=== PATIENT | female | born 1940 | race Caucasian/White ===

== ENCOUNTER 2017-03-14 06:59 | Day surgery (SDC) | payer MEDICARE ==
--- NOTE | 2017-03-07 10:05 | HP ---
DATE OF ADMISSION: 03/07/2017 SHORT STAY HISTORY AND PHYSICAL HISTORY OF PRESENT ILLNESS: This is a 77-year-old female with anal cancer, status post ch emoradiation. The patient had completed chemotherapy and radiation therapy. The patient is doing w ell except for some perianal discomfort and some tenderness. The patient has being seeing Dr. Greta Mays for chemotherapy. Dr. Mays requested sigmoidoscopy because of the anal cancer. ALLERGIES: PENICILLIN. MEDICAL ILLNESS: 1. Anal cancer, status post chemoradiation. 2. Osteoarthritis. 3. Colon polyp. 4. Glaucoma. 5. Migraine. 6. Osteoporosis. PHYSICAL EXAMINATION: GENERAL: Patient is thin built, appears comfortable. VITAL SIGNS: Pulse is 70, blood pressure is 130/70. HEENT: Conjunctivae are clear. CARDIOVASCULAR SYSTEM: First and second heart sounds are normal. LUNGS: Clear to auscultation. ABDOMEN: Soft to palpate. No organomegaly. No tenderness. No masses. ADMITTING DIAGNOSIS: Anal cancer. She is status post chemoradiation. PLAN: Sigmoidoscopy.
[2017-03-13 08:27] VITALS: BMI 18.9
--- NOTE | 2017-03-14 06:07 | HP ---
DATE OF ADMISSION: 03/14/2017 HISTORY OF PRESENT ILLNESS: This is a 77-year-old female diagnosed to have the anal canal cancer few months ago. She had undergone chemoradiation. The patient has completed chemotherapy r ecently. She comes in for a sigmoidoscopy today because of the previously diagnosed anal cancer. ALLERGIES: PENICILLIN. MEDICAL ILLNESSES: 1. Osteoarthritis. 2. Colon polyp. 3. Glaucoma. 4. Migraine headache. 5. Osteoporosis. 6. Anal cancer. PHYSICAL EXAMINATION: GENERAL: She is thin built, appears comfortable. VITAL SIGNS: Pulse is 70, blood pressure 120/70. HEENT: Conjunctivae clear. CARDIOVASCULAR SYSTEM: First and second heart sounds normal. LUNGS: Clear to auscultation. ABDOMEN: Soft to palpate. No organomegaly. No tenderness. No masses. ADMITTING DIAGNOSIS: Anal cancer, status post chemoradiation. PLAN: Sigmoidoscopy.
[2017-03-14] MEDS ORDERED: Lidocaine 1% PF 5 ML VIAL ONE (08:52)
[2017-03-14] MEDS ORDERED: PHENYLEPHRINE-NS 100 MCG/ML 10 ML SYRINGE ONE (08:52)
--- NOTE | 2017-03-14 10:15 | OP ---
DATE OF PROCEDURE: 03/14/2017 SURGEON: Soifa Blandon M.D. OPERATIVE PROCEDURE: Flexible sigmoidoscopy with biopsy. PREOPERATIVE DIAGNOSIS: Anal canal cancer, status post chemoradiation. POSTOPERATIVE DIAGNOSES: 1. Hemorrhoids. 2. No anal canal mass seen. Random biopsies were obtained from the anal canal. The exam was done to about 30 cm from the anal margin. PROCEDURE IN DETAIL: The patient was placed on her left lateral position and was given sedation by Anesthesia Department. A rectal exam was done before the scope was advanced into the rectum. The p atient had an hemorrhoids, a skin tag outside. No lesions were felt on rectal exam. A Pentax video colonoscope was introduced into the rectum and advanced to a distance of about 30 cm from the anal margin. The scope was withdrawn carefully and rectum with no pathology. There were no masses the r ectum. Retroflexion failed to show any lesions in the rectum also. The scope was carefully withdra wn. In the anal canal there is an area of what appears to be mucosal healing and some irregular muc kuldeep. This was biopsied. 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 She underwent chemoradiation. The sigmoidoscopy did not reveal any pathology. DISCHARGE RECOMMENDATIONS: 1. The patient advised to call me if she develops abdominal pain, hematochezia or fever. 2. She was told she may have some bleeding from the biopsy site.
== END 2017-03-14 09:44 | disposition home or self-care (01) ==
LOC: SDC 06:59
PROVIDERS: ATTEND Internal Medicine Gastroenterology
PROC: 0DBQ8ZX Excision of Anus, Via Natural or Artificial Opening Endoscopic, Diagnostic (ICD-10-PCS; principal; 2017-03-14)
PROC: 0DBP8ZX Excision of Rectum, Via Natural or Artificial Opening Endoscopic, Diagnostic (ICD-10-PCS; 2017-03-14)
DX: Z08 Encounter for follow-up examination after completed treatment for malignant neoplasm (principal); K64.9 Unspecified hemorrhoids; M19.90 Unspecified osteoarthritis, unspecified site; H40.9 Unspecified glaucoma; G43.909 Migraine, unspecified, not intractable, without status migrainosus; M81.0 Age-related osteoporosis without current pathological fracture; Z88.0 Allergy status to penicillin; Z79.899 Other long term (current) drug therapy; Z98.42 Cataract extraction status, left eye; Z98.41 Cataract extraction status, right eye; Z90.49 Acquired absence of other specified parts of digestive tract; Z96.1 Presence of intraocular lens; Z98.890 Other specified postprocedural states; Z87.19 Personal history of other diseases of the digestive system; Z92.3 Personal history of irradiation; Z92.21 Personal history of antineoplastic chemotherapy
CPT/HCPCS: 88305; J2001

== ENCOUNTER 2017-05-09 06:55 | Outpatient (CLI) | payer MEDICARE | END 2017-05-09 06:56 | disposition home or self-care (01) | LOC: BICMRI 06:55 | PROVIDERS: ATTEND Orthopaedic Surgery Hand Surgery | DX: S63.592A Other specified sprain of left wrist, initial encounter (principal); S52.502A Unspecified fracture of the lower end of left radius, initial encounter for closed fracture; S62.132A Displaced fracture of capitate [os magnum] bone, left wrist, initial encounter for closed fracture ==

== ENCOUNTER 2017-12-12 10:14 | Outpatient (CLI) | payer MEDICARE ==
--- NOTE | 2017-12-12 12:25 | RAD ---
CHEST 2 VIEWS: Date: 12/12/17 HISTORY: Dyspnea. COMPARISON: PET CT from 01/24/17. FINDINGS: Cardiac silhouette and pulmonary vasculature are unremarkable. Lungs are hyperinflated. Mediastinum i s midline. Patchy opacity over the lateral aspect of the right upper lobe correlates with the nodular infiltrate on prior CT. No lobar consolidation, pneumothorax, or pleural fluid are apparent. IMPRESSION: 1. Chronic versus recurrent right upper lobe multinodular infiltrate. Similar to CT exam from . 2. COPD. POS: [facility]
== END 2017-12-12 10:15 | disposition home or self-care (01) ==
LOC: RAD 10:14
PROVIDERS: ATTEND Internal Medicine Pulmonary Disease
DX: R06.00 Dyspnea, unspecified (principal); J44.9 Chronic obstructive pulmonary disease, unspecified
CPT/HCPCS: 71046

== ENCOUNTER 2018-04-02 11:03 | Outpatient (CLI) | payer MEDICARE | END 2018-04-02 11:04 | disposition home or self-care (01) | LOC: BICMAMMO 11:03 | PROVIDERS: ATTEND Internal Medicine | DX: Z12.31 Encounter for screening mammogram for malignant neoplasm of breast (principal) | CPT/HCPCS: 77063; 77067 ==

== ENCOUNTER 2018-04-06 08:49 | Outpatient (CLI) | payer MEDICARE ==
--- NOTE | 2018-04-06 10:23 | RAD ---
RADIOGRAPH CHEST 2 VIEWS: Date: 04/06/2018 Time: 8:58 a.m. HISTORY: A 78-year-old female with dyspnea. COMPARISON: 03/16/2017 FINDINGS: The cardiomediastinal silhouette is normal. There is no hilar enlargement. No pleural effusion or p neumothorax. A cluster of reticulonodular densities at the lateral aspect of the right upper lobe is unchanged since 03/16/2017. It was also present on an older study of 09/27/2013. A small, focal, irregularly-shaped density at the lingula, and possibly a similar one in the right mi ddle lobe, at the medial anterior right lung base, are unchanged since 11/15/2016. No new consolidat ion is visualized. No pulmonary edema, pleural effusion, or pneumothorax. IMPRESSION: 1. No acute findings. 2. Cluster of reticulonodular densities in the right upper lobe is chronic. JN [] POS: [facility]
== END 2018-04-06 08:50 | disposition home or self-care (01) ==
LOC: BICRAD 08:49
PROVIDERS: ATTEND Internal Medicine Pulmonary Disease
DX: R06.00 Dyspnea, unspecified (principal); J98.4 Other disorders of lung
CPT/HCPCS: 71046

== ENCOUNTER 2018-06-19 14:18 | Outpatient (CLI) | payer MEDICARE ==
--- NOTE | 2018-06-19 16:38 | RAD ---
RIGHT HIP RADIOGRAPH TWO VIEWS: 06/19/18 PROVIDED CLINICAL HISTORY: Hip pain. FINDINGS: There is no evidence for fracture or other acute osseous abnormality. Alignment appears anatomic. Rig ht hip joint space appears preserved. IMPRESSION: No evidence for an acute osseous abnormality or significant arthropathy. POS: [facility]
--- NOTE | 2018-06-19 16:40 | RAD ---
LUMBAR SPINE TWO VIEWS: 06/19/18 HISTORY: Low back pain. Intervertebral disc degeneration, lumbar region. FINDINGS/IMPRESSION: Degenerative changes are seen with dextroscoliosis of the lumbar spine. No acute fracture is seen. Th ere is grade I-II anterolisthesis of L5 over S1. POS: [facility]
--- NOTE | 2018-06-19 16:40 | RAD ---
LEFT HIP RADIOGRAPHS TWO VIEWS: 06/19/18 PROVIDED CLINICAL HISTORY: Hip pain. FINDINGS: No evidence for fracture or other acute osseous abnormality. Alignment appears anatomic. Left hip avinash nt space appears preserved. IMPRESSION: No evidence for acute osseous abnormality or significant arthropathy. POS: [facility]
--- NOTE | 2018-06-19 16:41 | RAD ---
SACROILIAC JOINTS THREE VIEWS: 06/19/18 HISTORY: Low back pain. FINDINGS/IMPRESSION: There are mild degenerative changes in the sacroiliac joints. No fracture, dislocation or bony destru ction seen in the pelvic bones. POS: [facility]
== END 2018-06-19 14:19 | disposition home or self-care (01) ==
LOC: BICRAD 14:18
PROVIDERS: ATTEND Internal Medicine
DX: M54.5 Low back pain (principal); M53.3 Sacrococcygeal disorders, not elsewhere classified; M47.898 Other spondylosis, sacral and sacrococcygeal region; M47.816 Spondylosis without myelopathy or radiculopathy, lumbar region; M41.9 Scoliosis, unspecified; M43.17 Spondylolisthesis, lumbosacral region
CPT/HCPCS: 72100; 72202

== ENCOUNTER 2018-07-06 09:03 | Outpatient (CLI) | payer MEDICARE ==
[2018-07-06] MEDS ORDERED: Gadobenate Dimeglumine 529 MG/1 ML (20ML VIAL) ONE (09:51)
--- NOTE | 2018-07-06 11:26 | MRI ---
MRI LUMBAR SPINE WITH AND WITHOUT CONTRAST: Date: 07/06/18 HISTORY: Lumbar spine pain. History of rectal cancer and anal cancer. Pain in coccyx. Evaluation for metastati c disease. COMPARISON: 06/19/18. FINDINGS: Aortic contour is nonaneurysmal. Paraspinal musculature is mildly atrophic. Mild prominence of the extrahepatic biliary system. There are insufficiency fractures of the sacrum bilaterally involving zone 1 of S1 and S2 and S3, inc ompletely evaluated as the entirety of the sacrum was not evaluated. There is also a transversely uzma ented fracture of the sacrum and S2 and S3. The conus medullaris terminates near the superior end plate of L1. Levels are as follows: L1-2: Moderate facet degenerative disc space height loss. 2 mm retrolisthesis. Broad based posterior disc osteophyte complex. There is moderate facet arthropathy. There is moderate bilateral neural for aminal narrowing. No spinal canal narrowing. L2-3: Mild disc desiccation. Narrowing of the interspinous space and subcortical sclerosis. Mild fac et arthrosis. Low grade posterior disc osteophyte complex. There is mild bilateral neural foraminal n arrowing. L4-5: There is a broad based posterior disc protrusion. Moderate facet arthrosis. Moderate to severe bilateral neural foraminal narrowing with abutment of the exiting nerve roots bilaterally. Spinal ca nal not significantly narrowed. L4-5: There is a broad based posterior disc osteophyte complex. Moderate facet arthrosis. Moderate l eft and moderate to severe right-sided neural foraminal narrowing with abutment of the right exiting nerve root. Severe facet arthropathy. Narrowing of the intraspinous spaces. L5-S1: There is anterolisthesis of L5 over S1 approximately 12 mm. Stress edema of the pars interart icularis bilaterally. There is subsequent moderate to severe left and severe right-sided neural charlotte inal narrowing. IMPRESSION: 1. Insufficiency fracture of the sacrum involving zone 1 and zone of 2 of S1-S3, as well as a transv ersely oriented fracture of the sacrum and S2 and S3. 2. 12 mm L5 over S1 anterolisthesis with subsequent severe neural foraminal narrowing. 3. Multifocal moderate to severe spondylosis as described. 4. No definite evidence of osseous metastatic disease. 5. Circumferential wall thickening of the rectum may be post treatment in nature. POS: [facility]
== END 2018-07-06 09:04 | disposition home or self-care (01) ==
LOC: MRI 09:03
PROVIDERS: ATTEND Internal Medicine
DX: M53.3 Sacrococcygeal disorders, not elsewhere classified (principal); M84.48XA Pathological fracture, other site, initial encounter for fracture; M43.17 Spondylolisthesis, lumbosacral region; M47.816 Spondylosis without myelopathy or radiculopathy, lumbar region; K62.89 Other specified diseases of anus and rectum; Z85.048 Personal history of other malignant neoplasm of rectum, rectosigmoid junction, and anus
CPT/HCPCS: 72158; 82565; A9577

== ENCOUNTER 2018-07-17 09:24 | Outpatient (CLI) | payer MEDICARE ==
--- NOTE | 2018-07-17 10:55 | RAD ---
3 VIEWS LUMBOSACRAL SPINE: Date: 07/17/18 COMPARISON: 06/09/18. HISTORY: Spondylolisthesis. FINDINGS: Three views of the lumbosacral spine were performed in neutral, flexion, and extension. There is Grade I anterolisthesis of L5 on S1. The other vertebral bodies demonstrate normal height wi thout fracture or subluxation. Alignment is unchanged with flexion and extension. Posterior facet art hrosis is seen in the lower lumbosacral spine. IMPRESSION: Spondylolisthesis of L5 on S1 with unchanged alignment with bending. POS: [facility]
== END 2018-07-17 09:25 | disposition home or self-care (01) ==
LOC: RAD 09:24
PROVIDERS: ATTEND Nurse Practitioner Family
DX: M43.16 Spondylolisthesis, lumbar region (principal); M43.17 Spondylolisthesis, lumbosacral region
CPT/HCPCS: 72100

== ENCOUNTER 2018-07-24 14:00 | Outpatient (CLI) | payer MEDICARE ==
--- NOTE | 2018-07-24 15:42 | CT ---
CT PELVIS NONCONTRAST: HISTORY: Back pain. Sacral insufficiency fractures. FINDINGS: Osseous structures are demineralized. Sagittally oriented linear lucency extends through the upper p ortions of each side of the sacrum with minimal distraction and no significant displacement. A small amount of surrounding sclerosis. Pelvic rings are intact. Mild degenerative changes of the hips. Spondylolisthesis at the lumbosacra l junction is partially visualized and better detailed on dedicated CT lumbar spine performed on the same date. Of visualized portions of the soft tissues, a 0.9 cm calculus is present within the infer ior pole right kidney. There are at least 3 tiny calcifications at the inferior pole of the left kid bennett. Circumferential wall thickening of the rectum and stranding in the adjacent fat are likely rela jassi to prior treatment for cancer. IMPRESSION: 1. Nondisplaced bilateral sacral insufficiency fractures are confirmed. 2. Osteoporosis. 3. Nonobstructing bilateral renal calculi. POS: [facility]
--- NOTE | 2018-07-24 15:49 | CT ---
CT LUMBAR SPINE NONCONTRAST: History: Low back pain. FINDINGS: Vertebral body heights are maintained. There is prominent rightward convex rotatory scoliotic curvatu re. Osseous structures are demineralized. Images including retroperitoneum show nonobstructing calcifications at the inferior pole of each kidn ey. T12-L1: Osteophytosis. Disc space narrowing and minimal degenerative retrolisthesis. Central canal an d right neural foramen are patent. Moderate stenosis of the left neural foramen. L1-2: Disc space narrowing and minimal degenerative retrolisthesis. Central canal and right neural fo ramen are patent. Severe stenosis of the left neural foramen. L2-3: Minimal disc bulge. Central canal is patent. Degenerative changes with mild to moderate stenosi s of each neural foramen. L3-4: Mild disc bulge and circumferential degenerative changes. Mild stenosis of the central canal. M oderate right and mild left foraminal stenoses. L4-5: Posterior disc bulge. Slight effacement of the thecal sac without significant central canal lexy nosis. Degenerative changes with mild stenosis of each neural foramen. L5-S1: There is 49% spondylolisthesis, disc space narrowing and gas disc phenomenon. Moderate stenosi s of the thecal sac due to the spondylolisthesis. Moderate right and very severe left foraminal steno ses. Bilateral sacral insufficiency fractures are partially visualized and better detailed on dedicated CT of the pelvis performed on the same date. IMPRESSION: 1. Prominent multilevel degenerative changes throughout the lumbar spine as detailed above with steno sis most severe at the left neural foramen of the lumbosacral junction. Clinical correlation regardin g the left L5 dermatome is required. 2. Osteoporosis. 3. Nonobstructing bilateral renal calculi. POS: [facility]
== END 2018-07-24 14:01 | disposition home or self-care (01) ==
LOC: BICCT 14:00
PROVIDERS: ATTEND Nurse Practitioner Family
DX: M84.48XA Pathological fracture, other site, initial encounter for fracture (principal); M43.16 Spondylolisthesis, lumbar region; M48.061 Spinal stenosis, lumbar region without neurogenic claudication; M47.815 Spondylosis without myelopathy or radiculopathy, thoracolumbar region; M47.816 Spondylosis without myelopathy or radiculopathy, lumbar region; M18.0 Bilateral primary osteoarthritis of first carpometacarpal joints; N20.0 Calculus of kidney
CPT/HCPCS: 72131; 72192

== ENCOUNTER 2019-02-08 08:18 | Day surgery (SDC) | payer MEDICARE ==
[2019-02-07 11:51] VITALS: BMI 18.8
--- NOTE | 2019-02-07 14:58 | HP ---
HISTORY OF PRESENT ILLNESS: Mireya Silva is a very pleasant 78-year-old female with anal cancer, status post chemoradiation. The patient did well since diagnosis. Her last sigmoidoscopy was about a year ago. The patient comes for followup colonoscopy because of anal cancer and also history of colon polyp. She is also having abdominal pain off and on. Pain is present over the epigastric area. She has no nausea or vomiting. She also will have an EGD at the same time because of abdominal pain. ALLERGIES: PENICILLIN. SOCIAL HISTORY: The patient is a former smoker. Drinks alcohol socially. MEDICAL ILLNESSES: 1. Hypothyroidism. 2. Migraine. 3. Osteoarthritis. 4. Anal cancer, status post chemoradiation. 5. She had a bronchoscopy and biopsy of pulmonary infiltrate in [address] Dean and biopsy was negative for any malignancy. PHYSICAL EXAMINATION: GENERAL: She is thin built individual. VITAL SIGNS: Pulse is 70, blood pressure 120/70. HEENT: Conjunctivae are clear. CARDIOVASCULAR SYSTEM: First and second heart sounds are normal. LUNGS: Clear to auscultation. ABDOMEN: Soft. No organomegaly. No tenderness. No masses. EXTREMITIES: Reveal no edema. ADMITTING DIAGNOSES: 1. Anal cancer, status post chemoradiation. 2. Abdominal pain. PLAN: EGD and colonoscopy. Job ID: [id number]
[2019-02-08] MEDS ORDERED: PROPOFOL 200 MG/20 ML VIAL ONE (13:52)
--- NOTE | 2019-02-08 15:07 | OP ---
DATE OF PROCEDURE: 02/08/2019 PROCEDURE PERFORMED: Colonoscopy with biopsy. PREOPERATIVE DIAGNOSIS: A 78-year-old female with colon polyp, anal cancer, status post chemoradiation. The patient undergoing followup colonoscopy. POSTOPERATIVE DIAGNOSES: 1. Anal canal appears healthy, does not show any tumor mass. However, the mucosa was very erythematous and friable. 2. Sigmoid diverticular disease. Biopsy was obtained of the anal canal. DESCRIPTION OF PROCEDURE: The patient was placed on her left lateral position and was given sedation by Anesthesia Department. A rectal exam was done. The scope was advanced into the rectum. The patient was noted to have external hemorrhoids. No other lesions felt. A Pentax video colonoscope was introduced into the rectum and advanced all the way to the cecum. The ileocecal area, cecum, ascending colon, no pathology seen. The patient's prep was good. The mucosa appears normal throughout the colon. The hepatic flexure, transverse colon, splenic flexure, descending colon, no pathology seen. The sigmoid colon showed mild diverticular disease. The rectum showed no sign of pathology. I could not retroflex the scope in the rectum, but careful examination of the anal canal showed no mass lesion. The biopsy was obtained from the anal canal. Job ID: [id number]
--- NOTE | 2019-02-08 15:12 | OP ---
DATE OF PROCEDURE: 02/08/2019 PROCEDURE PERFORMED: Esophagogastroduodenoscopy with biopsy. PREOPERATIVE DIAGNOSES: Abdominal pain. POSTOPERATIVE DIAGNOSES: 1. Normal esophageal mucosa. 2. Normal fundus and cardia and gastric body. 3. Two ulceration of the gastric antrum and gastritis. 4. Normal duodenum. DESCRIPTION OF PROCEDURE: The patient was placed on her left lateral position and was given sedation by Anesthesia Department. A Pentax video gastroscope under direct vision was passed down the oropharynx, past the GE junction into the stomach and subsequently into the descending duodenum. The esophageal mucosa appeared normal. In the GE junction, no lesion seen. Retroflexion failed to show any pathology in fundus or cardia. In the gastric body, no pathology. The gastric antrum showed two ulcerations. Biopsy obtained of the gastric antrum and gastric body. The duodenal bulb, descending duodenum, no pathology seen. DISCHARGE PLANNING: This 78-year-old female came for EGD because of abdominal pain. This has been going on several months. She has had a colon polyp removed. She also had anal cancer, chemoradiation. She underwent EGD with biopsy and colonoscopy with rectal biopsy. DISCHARGE RECOMMENDATIONS: 1. Resume all medications as before. 2. Start the patient on omeprazole 40 once a day. 3. To come back to clinic in 2 weeks. Job ID: [id number]
== END 2019-02-08 11:42 | disposition home or self-care (01) ==
LOC: SDC 08:18
PROVIDERS: ATTEND Internal Medicine Gastroenterology
PROC: 0DB68ZX Excision of Stomach, Via Natural or Artificial Opening Endoscopic, Diagnostic (ICD-10-PCS; principal; 2019-02-08)
PROC: 0DBP8ZX Excision of Rectum, Via Natural or Artificial Opening Endoscopic, Diagnostic (ICD-10-PCS; 2019-02-08)
DX: C21.0 Malignant neoplasm of anus, unspecified (principal); K57.30 Diverticulosis of large intestine without perforation or abscess without bleeding; K31.89 Other diseases of stomach and duodenum; K25.9 Gastric ulcer, unspecified as acute or chronic, without hemorrhage or perforation; K29.70 Gastritis, unspecified, without bleeding; E03.9 Hypothyroidism, unspecified; M19.90 Unspecified osteoarthritis, unspecified site; Z86.010 Personal history of colon polyps; Z87.891 Personal history of nicotine dependence; Z88.0 Allergy status to penicillin
CPT/HCPCS: 88305; 88312

== ENCOUNTER 2019-03-18 13:38 | Outpatient (CLI) | payer MEDICARE ==
--- NOTE | 2019-03-18 14:34 | CT ---
CT Pelvis WO Con History: Pelvic insufficiency fracture. Comparison: CT pelvis July 24, 2017 Findings: There has been interval cement placement within the bilateral sacral insufficiency fracture s. Mild cemented migration into the SI joints. High-grade facet arthrosis at L5/S1 with subsequent grade 2 anterolisthesis. Broad-based disc bulges at L3/L4 and L4/L5 causing bilateral neural foraminal narrowing. There is advanced interspinous narrowing with subcortical cyst formation and cortical sclerosis. There is a new fracture of the left pubic body extending into the superior and inferior pubic rami. T he rectus femoris/abductor aponeurotic plate is thickened. Nonobstructive bilateral renal calculi. Impression: 1. Interval cement placement through the bilateral sacral insufficiency fractures without significant healing. 2. New fracture of the left pubic body extending into the superior and inferior pubic rami. At the ca udal margin of the fracture at the inferior pubic ramus on the left is a medullary lucency which is felt to reflect remodeling and less likely a lytic neoplastic process.
== END 2019-03-18 13:39 | disposition home or self-care (01) ==
LOC: BICCT 13:38
PROVIDERS: ATTEND Specialist
DX: M84.48XA Pathological fracture, other site, initial encounter for fracture (principal); M84.454A Pathological fracture, pelvis, initial encounter for fracture
CPT/HCPCS: 72192

== ENCOUNTER 2019-04-08 15:54 | Outpatient (CLI) | payer MEDICARE ==
--- NOTE | 2019-04-08 16:25 | MMO ---
Bilateral MAMMO Bilat Screen [facility]. CLINICAL HISTORY: Patient is 79 years old and is seen for screening. The patient has no family history of breast cancer. The patient has a history of other cancer. VIEWS: The views performed were: bilateral craniocaudal with tomosynthesis; bilateral mediolateral oblique with tomosynthesis; and bilateral exaggerated craniocaudal. FILMS COMPARED: The present examination has been compared to prior imaging studies performed at [facility] on 04/01/2015, 03/29/2016, 03/30/2017 and 04/02/2018. This study has been interpreted with the assistance of computer-aided detection. MAMMOGRAM FINDINGS: The breasts are extremely dense, which may lower the sensitivity of mammography. There are no suspicious masses, suspicious calcifications, or new areas of architectural distortion. IMPRESSION: THERE IS NO MAMMOGRAPHIC EVIDENCE OF MALIGNANCY. A ROUTINE FOLLOW-UP MAMMOGRAM IN 1 YEAR IS RECOMMENDED. THE RESULTS OF THIS EXAM WERE SENT TO THE PATIENT. ACR BI-RADS Category 1 - Negative MAMMOGRAPHY NOTE: 1. A negative mammogram report should not delay a biopsy if a dominant of clinically suspicious mass is present. 2. Approximately 10% to 15% of breast cancers are not detected by mammography. 3. Adenosis and dense breasts may obscure an underlying neoplasm. Reported by: [employer] CAMP[facility] [employer] Signed: [id number]
== END 2019-04-08 15:55 | disposition home or self-care (01) ==
LOC: BICMAMMO 15:54
PROVIDERS: ATTEND Internal Medicine
DX: Z12.31 Encounter for screening mammogram for malignant neoplasm of breast (principal); Z85.89 Personal history of malignant neoplasm of other organs and systems
CPT/HCPCS: 77063; 77067

== ENCOUNTER 2020-05-25 07:41 | Outpatient (CLI) | payer MEDICARE ==
--- NOTE | 2020-05-25 10:04 | MRI ---
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 Extensive signal changes involving both sacral ala compatible with the previously demonstrated change s of sacral insufficiency fracture status post methylmethacrylate placement. There is signal alteration involving the medial aspects of both iliac bones adjacent to the sacroilia c joints, predominating on the right and predominating inferiorly bilaterally. This is comprised of heterogeneously diminished T1 signal alteration that remains predominantly isointense to hyperintense to skeletal muscle. There is extensive patchy, nonmass-like T2 prolongation bilaterally. There is a widened and irregular appearance to both sacroiliac joints. There is no inflammatory change within the surrounding soft tissues. There is circumscribed T2 hyperi ntensity within the central aspects of the uterine endometrial canal, incompletely characterized on the basis of this study. The visualized intrapelvic contents appear otherwise grossly unremarkable. T he amount of fluid within both hip joints appears physiologic. IMPRESSION: 1. Findings compatible with sequela of prior treated sacral insufficiency fractures. 2. 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 3. Signal alteration involving right greater than left medial iliac bones, most compatible with a com bination of stress-related changes and bone infarction. If the patient has had radiation, postradiation change could also be considered. 4. Abnormal appearance to the uterus, for which further evaluation with pelvic ultrasound is recommen ded.
--- NOTE | 2020-05-25 11:33 | MRI ---
MRI LUMBAR SPINE WITHOUT COTNRAST: HISTORY: M51.17, intervertebral disk disorder. COMPARISON: Ference is made to a CT of the pelvis of 03/18/2020. There is also a CT of the lumbar spine 07/24/2018 . FINDINGS: No marrow infiltrative process. No acute fracture. Incomplete evaluation of the sacrum. There is cement through known insufficiency fractures. Narrowing of the intraspinous space with adventitial bursa formation of L1-L5, greatest degeneration at L2-3. There are also subcortical erosions at L3-4 interspinous space. The conus medullaris terminates near the superior L1 end plate. Levels are as follows: L1-2: Moderate disk desiccation and height loss. Moderate disk effusion. There is 2 mm retrolisthe sis. Moderate disk-osteophyte complex. Minimal ventral CSF space effacement with the spinal canal s till measuring 12 mm. Moderate bilateral neural foraminal narrowing. L2-3: Mild disk desiccation with height loss. Small circumferential disk bulge. Mild hypertrophic facet arthrosis. Mild ligamentum flavum hypertrophy. Moderate bilateral neural foraminal narrowing. No significant spinal canal narrowing. L3-4: Mild disk desiccation and height loss. Moderate circumferential disk bulge greatest in the ri ght lateral recess and subforaminal zone. There is a moderate bilateral neural foraminal narrowing. No significant spinal canal narrowing with minimal ventral CSF space displacement in the spinal canal still measuring 11 mm. L4-5: Mild disk desiccation and height loss. Moderate circumferential disk-osteophyte complex with a right paracentral annular fissure. Moderate right and mild left neural foraminal narrowing. Moder ate hypertrophic facet arthrosis. L5-S1: Grade II anterolisthesis, nearly 50%. Severe facet arthrosis bilaterally. Unilateral right pars interarticularis defect. Mild posterior displacement of disk material as an adaptation to sublu xation. Moderate to severe left and severe right neural foraminal narrowing with abutment of the nadeen ateral exiting and traversing nerve roots with possible impingement upon the right exiting L5 nerve r oot. Possible resorption/surgical excision of the lower sacrum. IMPRESSION: 1. High-grade lower lumbar spondylosis as described with grade II nearly 50% L5 S1 anterolisthesis. 2. No acute fracture nor new stress changes. Resolving stress changes of S2 and S3. 3. Dysplastic appearance of the lower sacrum at the S2-3 junction may ___ prior radiation/treatment. 4. Cement within the known bilateral sacral alae stress fractures. POS: [facility]
[2020-05-25] MEDS ORDERED: Magnevist 469MG/ML 20 ML VIAL ONE (12:26)
== END 2020-05-25 07:42 | disposition home or self-care (01) ==
LOC: BICMRI 07:41
PROVIDERS: ATTEND Specialist
DX: M51.17 Intervertebral disc disorders with radiculopathy, lumbosacral region (principal); M84.48XA Pathological fracture, other site, initial encounter for fracture; M47.816 Spondylosis without myelopathy or radiculopathy, lumbar region; M43.17 Spondylolisthesis, lumbosacral region
CPT/HCPCS: 72148; 72197; 82565; A9579

== ENCOUNTER 2022-06-25 19:06 | Inpatient (IN) | payer MEDICARE ==
[~2022-06-25 19:06] MED LIST: Iopamidol-370 76% 500 ML 1 ML ONE
[2022-06-25 20:14] LABS: #Lymphocytes 1.1 thou/uL (1.20-3.40); #Monocytes 0.9 thou/uL (0.11-0.59); #Neutrophils 6.6 thou/uL (1.40-6.50); %Basophils 0.1 % (0.0-1.0); %Eosinophils 0.5 % (0.0-10.0); %Lymphocytes 13.1 % (21.0-51.0); %Monocytes 10.8 % (0.0-10.0); %Neutrophils 75.6 % (42.0-75.0); Hemoglobin 14.4 g/dL (12.0-16.0); Mean Corpuscular HGB CONC 32.1 g/dL (32.0-36.0); Mean Corpuscular Hemoglobin 29.8 pg (27.0-31.0); Mean Corpuscular Volume 92.8 fl (78.0-98.0); Mean Platelet Volume 7.5 fL (7.4-10.4); Platelet Count 234 10x3/uL (130-400); RBC Distribution Width 12.2 % (11.5-14.5); Red Blood Cell (RBC) Count 4.83 mill/uL (4.20-5.40); White Blood Cell (WBC) Count 8.7 10x3/uL (4.8-10.8)
[2022-06-25 20:32] LABS: Anion Gap 13 mmol/L (10-20); BUN (Urea Nitrogen) 14 mg/dL (9.8-20.1); Calc. Creatinine Clearance 0 mL/min (70-130); Carbon Dioxide 28 mmol/L (23-31); Chloride 100 mmol/L (98-107); Potassium 3.9 mmol/L (3.5-5.1); Sodium 137 mmol/L (136-145)
[2022-06-25 20:33] LABS: ALT (SGPT) 12 U/L (8-55); AST (SGOT) 19 U/L (5-34); Albumin 3.9 g/dL (3.4-4.8); Alkaline Phosphatase 79 U/L (40-110); Calcium 9.3 mg/dL (7.8-10.44); Estimated GFR 76; Globulin 3.6 g/dL (2.4-3.5); Glucose 115 mg/dL (83-110); Lipase 20 U/L (8-78); Protein, Total 7.5 g/dL (5.8-8.1)
[2022-06-25] MEDS ORDERED: Ondansetron PF 4 MG/2 ML Vial ONE (21:27)
[2022-06-25] MEDS ORDERED: Morphine 4 MG/ML VIAL ONE (22:09)
[2022-06-25] MEDS ORDERED: Ketorolac Tromethamine 30 MG/ML VIAL ONE (22:12)
[2022-06-26] MEDS ORDERED: Ondansetron PF 4 MG/2 ML Vial ONE (00:10)
[2022-06-26] MEDS ORDERED: Morphine 4 MG/ML VIAL SLOW IVP PRN (00:59)
[2022-06-26] MEDS ORDERED: Acetaminophen 325 MG TAB PO PRN (01:00)
[2022-06-26] MEDS ORDERED: Sodium Chloride 0.9% 1,000 ML IV SCH (01:00)
[2022-06-26] MEDS ORDERED: Ondansetron PF 4 MG/2 ML Vial IVP PRN ×2 (01:00→01:33)
[2022-06-26] MEDS ORDERED: Ondansetron ODT 4 MG TAB SL PRN (01:00)
[2022-06-26 01:24] VITALS: BMI 17.9
[2022-06-26 01:35] LABS: Bacteria/HPF None Seen HPF (None Seen); Bilirubin Negative (Negative); Blood, Urine 1+ (Negative); Clarity Clear (Clear); Glucose, Urine (Dipstick) Normal (Negative); Ketone, Urine 10 mg/dL (Negative); Leukocyte Negative Leu/uL (Negative); Nitrite Negative (Negative); Protein, Urine (Dipstick) 20 mg/dL (Neg-Trace); Squamous Epithelial None Seen HPF (0-3); Urobilinogen Normal mg/dL (Less than 2)
[2022-06-26 01:36] LABS: Specific Gravity, Urine Greater than 1.060 (1.002-1.036)
[2022-06-26] MEDS: Sodium Chloride 0.9% 1,000 ML IV SCH ×3 (02:14→20:49)
[2022-06-26] MEDS ORDERED: Fentanyl 100 MCG/2 ML VIAL SLOW IVP PRN (02:52)
[2022-06-26 07:39] LABS: Anion Gap 9 mmol/L (10-20); BUN (Urea Nitrogen) 14 mg/dL (9.8-20.1); Calc. Creatinine Clearance 54 mL/min (70-130); Calcium 7.7 mg/dL (7.8-10.44); Carbon Dioxide 24 mmol/L (23-31); Chloride 107 mmol/L (98-107); Estimated GFR 90; Glucose 81 mg/dL (83-110); Potassium 3.6 mmol/L (3.5-5.1); Sodium 136 mmol/L (136-145)
[2022-06-26 09:42] LABS: Band 2 % (5-11); Eosinophils 1 % (0-10); Lymphocytes 18 % (21-51); MDiff Complete? YES; Mean Corpuscular HGB CONC 32.9 g/dL (32.0-36.0); Mean Corpuscular Hemoglobin 30.8 pg (27.0-31.0); Mean Corpuscular Volume 93.3 fl (78.0-98.0); Mean Platelet Volume 7.7 fL (7.4-10.4); Monocytes 14 % (0-10); Neutrophil 63 % (42-75); Platelet Count 162 10x3/uL (130-400); Platelet Morphology Comment Appears Adequate; RBC Distribution Width 12.1 % (11.5-14.5); Reactive Lymphocytes 1 % (0-10); Red Blood Cell (RBC) Count 3.57 mill/uL (4.20-5.40); White Blood Cell (WBC) Count 5.1 10x3/uL (4.8-10.8)
[2022-06-26] MEDS ORDERED: Pantoprazole 40 MG VIAL IVP SCH (11:00)
[2022-06-26] MEDS ORDERED: MD-Gastroview 120 ML BOT ONE (11:49)
[2022-06-26 14:12] LABS: Hemoglobin 13.1 g/dL (12.0-16.0)
[2022-06-26] MEDS ORDERED: Melatonin 3 MG TAB PO SCH (21:00)
[2022-06-26] MEDS ORDERED: Latanoprost 0.005% Ophth Soln 2.5 ml Bottle EA EYE SCH (21:00)
[2022-06-27] MEDS ORDERED: Levothyroxine Sodium 50 MCG TAB PO SCH (06:00)
[2022-06-27 07:11] LABS: Reticulocyte Count 1.2 % (0.5-1.5)
[2022-06-27 07:14] LABS: #Eosinphils 0.1 thou/uL (0.0-0.7); #Lymphocytes 0.8 thou/uL (1.20-3.40); #Monocytes 0.6 thou/uL (0.11-0.59); %Basophils 0.4 % (0.0-1.0); %Eosinophils 2.8 % (0.0-10.0); %Lymphocytes 17.9 % (21.0-51.0); Hemoglobin 10.9 g/dL (12.0-16.0); Mean Corpuscular HGB CONC 33.1 g/dL (32.0-36.0); Mean Corpuscular Hemoglobin 30.6 pg (27.0-31.0); Mean Corpuscular Volume 92.7 fl (78.0-98.0); Mean Platelet Volume 7.9 fL (7.4-10.4); Platelet Count 159 10x3/uL (130-400); Red Blood Cell (RBC) Count 3.56 mill/uL (4.20-5.40); White Blood Cell (WBC) Count 4.6 10x3/uL (4.8-10.8)
[2022-06-27 07:19] LABS: Anion Gap 9 mmol/L (10-20); BUN (Urea Nitrogen) 12 mg/dL (9.8-20.1); Calc. Creatinine Clearance 54 mL/min (70-130); Calcium 8.1 mg/dL (7.8-10.44); Carbon Dioxide 24 mmol/L (23-31); Chloride 108 mmol/L (98-107); Estimated GFR 90; Glucose 81 mg/dL (83-110); Iron 47 ug/dL (50-170); Potassium 3.2 mmol/L (3.5-5.1); Sodium 138 mmol/L (136-145)
[2022-06-27] MEDS: Sodium Chloride 0.9% 1,000 ML IV SCH (08:45)
[2022-06-27] MEDS ORDERED: Multivitamin W/ Minerals 1 TAB PO SCH (09:00)
[2022-06-27] MEDS ORDERED: Metamucil PACK PO SCH (09:00)
[2022-06-27 14:02] VITALS: BP 123/85; TEMP 97.9
== END 2022-06-27 14:17 | disposition home or self-care (01) | DRG 389 ==
LOC: ERS 19:06 → T4-B 06-26 00:10
PROVIDERS: ADMIT Student in an Organized Health Care Education/Training Program; ATTEND Family Medicine
DX: K56.7 Ileus, unspecified (principal); D62 Acute posthemorrhagic anemia; E03.9 Hypothyroidism, unspecified; R31.9 Hematuria, unspecified; N93.9 Abnormal uterine and vaginal bleeding, unspecified; K52.9 Noninfective gastroenteritis and colitis, unspecified; Z20.822 Contact with and (suspected) exposure to COVID-19; M81.0 Age-related osteoporosis without current pathological fracture; H40.9 Unspecified glaucoma; Z90.49 Acquired absence of other specified parts of digestive tract; Z88.0 Allergy status to penicillin; Z79.899 Other long term (current) drug therapy; Z85.038 Personal history of other malignant neoplasm of large intestine
CPT/HCPCS: 36415; 74177; 74250; 76856; 80048; 80053; 81003; 81015; 82274; 82728; 83540; 83605; 83690; 84443; 85025; 85046; 96374; 96375; 96376; C9113; J1885; J2270; J2405; J7050; Q9963; Q9967; U0003; U0005

== ENCOUNTER 2022-07-17 14:36 | Emergency (ER) | payer MEDICARE ==
[2022-07-17 17:15] LABS: #Lymphocytes 1.3 thou/uL (1.20-3.40); #Monocytes 0.7 thou/uL (0.11-0.59); #Neutrophils 5.1 thou/uL (1.40-6.50); %Basophils 0.2 % (0.0-1.0); %Eosinophils 0.5 % (0.0-10.0); %Lymphocytes 17.6 % (21.0-51.0); %Monocytes 9.4 % (0.0-10.0); %Neutrophils 72.4 % (42.0-75.0); Hemoglobin 11.9 g/dL (12.0-16.0); Mean Corpuscular HGB CONC 32.6 g/dL (32.0-36.0); Mean Corpuscular Hemoglobin 30.5 pg (27.0-31.0); Mean Corpuscular Volume 93.5 fl (78.0-98.0); Mean Platelet Volume 7.3 fL (7.4-10.4); Platelet Count 286 10x3/uL (130-400); RBC Distribution Width 12.8 % (11.5-14.5); White Blood Cell (WBC) Count 7.1 10x3/uL (4.8-10.8)
[2022-07-17 17:32] LABS: ALT (SGPT) 18 U/L (8-55); AST (SGOT) 19 U/L (5-34); Albumin 3.3 g/dL (3.4-4.8); Alkaline Phosphatase 48 U/L (40-110); Anion Gap 12 mmol/L (10-20); BUN (Urea Nitrogen) 21 mg/dL (9.8-20.1); Bilirubin, Total 0.6 mg/dL (0.2-1.2); Calc. Creatinine Clearance 0 mL/min (70-130); Calcium 8.2 mg/dL (7.8-10.44); Carbon Dioxide 21 mmol/L (23-31); Chloride 105 mmol/L (98-107); Estimated GFR 71; Globulin 2.5 g/dL (2.4-3.5); Glucose 81 mg/dL (83-110); Lipase 17 U/L (8-78); Potassium 4.2 mmol/L (3.5-5.1); Protein, Total 5.8 g/dL (5.8-8.1); Sodium 134 mmol/L (136-145)
[2022-07-17 18:20] LABS: Bacteria/HPF None Seen HPF (None Seen); Bilirubin Negative (Negative); Blood, Urine 1+ (Negative); Clarity Clear (Clear); Glucose, Urine (Dipstick) Normal (Negative); Ketone, Urine 10 mg/dL (Negative); Leukocyte 75 Leu/uL (Negative); Nitrite Negative (Negative); Protein, Urine (Dipstick) 10 mg/dL (Neg-Trace); RBC/HPF 0-3 HPF (0-3); Specific Gravity, Urine 1.012 (1.002-1.036); Squamous Epithelial 0-3 HPF (0-3); Urobilinogen Normal mg/dL (Less than 2); WBC/HPF 21-50 HPF (0-3)
== END 2022-07-17 19:23 | disposition home or self-care (01) ==
LOC: ERS 14:36
DX: K52.9 Noninfective gastroenteritis and colitis, unspecified (principal); N39.0 Urinary tract infection, site not specified; E03.9 Hypothyroidism, unspecified; Z87.891 Personal history of nicotine dependence
CPT/HCPCS: 36415; 74177; 80053; 81003; 81015; 83690; 85025; Q9967

== ENCOUNTER 2022-07-21 11:36 | Outpatient (CLI) | payer MEDICARE | END 2022-07-21 11:37 | disposition home or self-care (01) | LOC: RAD 11:36 | PROVIDERS: ATTEND Physician Assistant Medical | DX: R10.9 Unspecified abdominal pain (principal); K59.00 Constipation, unspecified; R11.2 Nausea with vomiting, unspecified; N20.0 Calculus of kidney | CPT/HCPCS: 74019 ==

== ENCOUNTER 2022-07-25 16:44 | Emergency (ER) | payer OTHER, MEDICARE ==
[2022-07-25 18:03] LABS: #Lymphocytes 0.9 thou/uL (1.20-3.40); #Monocytes 1.1 thou/uL (0.11-0.59); #Neutrophils 6.4 thou/uL (1.40-6.50); %Basophils 0.2 % (0.0-1.0); %Eosinophils 0.4 % (0.0-10.0); %Lymphocytes 11.1 % (21.0-51.0); %Monocytes 12.7 % (0.0-10.0); %Neutrophils 75.7 % (42.0-75.0); Hemoglobin 14.7 g/dL (12.0-16.0); Mean Corpuscular HGB CONC 32.9 g/dL (32.0-36.0); Mean Corpuscular Hemoglobin 30.4 pg (27.0-31.0); Mean Corpuscular Volume 92.2 fl (78.0-98.0); Mean Platelet Volume 7.1 fL (7.4-10.4); Platelet Count 403 10x3/uL (130-400); RBC Distribution Width 12.7 % (11.5-14.5); Red Blood Cell (RBC) Count 4.83 mill/uL (4.20-5.40); White Blood Cell (WBC) Count 8.5 10x3/uL (4.8-10.8)
[2022-07-25 18:08] LABS: ALT (SGPT) 25 U/L (8-55); AST (SGOT) 24 U/L (5-34); Albumin 3.5 g/dL (3.4-4.8); Alkaline Phosphatase 62 U/L (40-110); Anion Gap 18 mmol/L (10-20); BUN (Urea Nitrogen) 19 mg/dL (9.8-20.1); Bilirubin, Total 0.9 mg/dL (0.2-1.2); Calc. Creatinine Clearance 0 mL/min (70-130); Calcium 9.1 mg/dL (7.8-10.44); Carbon Dioxide 23 mmol/L (23-31); Chloride 96 mmol/L (98-107); Estimated GFR 73; Globulin 3.3 g/dL (2.4-3.5); Glucose 97 mg/dL (83-110); Protein, Total 6.8 g/dL (5.8-8.1); Sodium 133 mmol/L (136-145)
[2022-07-25 22:56] LABS: Bacteria/HPF 2+ HPF (None Seen); Bilirubin Negative (Negative); Blood, Urine 2+ (Negative); Clarity Turbid (Clear); Glucose, Urine (Dipstick) Normal (Negative); Ketone, Urine 150 mg/dL (Negative); Leukocyte 500 Leu/uL (Negative); Mucous/LPF Rare LPF (<2+); Nitrite Negative (Negative); Protein, Urine (Dipstick) 70 mg/dL (Neg-Trace); RBC/HPF Greater than 50 HPF (0-3); Renal Epithelial 0-3 HPF (None Seen); Specific Gravity, Urine 1.024 (1.002-1.036); Squamous Epithelial 0-3 HPF (0-3); WBC/HPF Greater than 50 HPF (0-3)
== END 2022-07-25 23:56 | disposition home or self-care (01) ==
LOC: ERS 16:44
DX: N39.0 Urinary tract infection, site not specified (principal); R10.9 Unspecified abdominal pain; E03.9 Hypothyroidism, unspecified; Z87.891 Personal history of nicotine dependence
CPT/HCPCS: 80053; 81003; 81015; 83690; 85025; 87086

== ENCOUNTER 2022-07-27 17:33 | Inpatient (IN) | payer MEDICARE ==
[~2022-07-27 17:33] MED LIST changes: -Iopamidol-370 76% 500 ML 1 ML ONE; +Iopamidol-370 76% 500 ML MDV (1 ML CHARGE) ONE
[2022-07-27 18:14] LABS: #Basophils 0.1 thou/uL (0.0-0.2); #Lymphocytes 0.9 thou/uL (1.20-3.40); #Monocytes 0.2 thou/uL (0.11-0.59); #Neutrophils 3.4 thou/uL (1.40-6.50); %Basophils 2.8 % (0.0-1.0); %Eosinophils 0.1 % (0.0-10.0); %Lymphocytes 19.3 % (21.0-51.0); %Monocytes 4.6 % (0.0-10.0); %Neutrophils 73.2 % (42.0-75.0); Hemoglobin 13.7 g/dL (12.0-16.0); Mean Corpuscular HGB CONC 32.7 g/dL (32.0-36.0); Mean Corpuscular Hemoglobin 30.1 pg (27.0-31.0); Mean Corpuscular Volume 91.9 fl (78.0-98.0); Platelet Count 455 10x3/uL (130-400); RBC Distribution Width 12.6 % (11.5-14.5); Red Blood Cell (RBC) Count 4.55 mill/uL (4.20-5.40); White Blood Cell (WBC) Count 4.7 10x3/uL (4.8-10.8)
[2022-07-27] MEDS ORDERED: Ondansetron PF 4 MG/2 ML Vial ONE (18:19)
[2022-07-27] MEDS ORDERED: Morphine 4 MG/ML VIAL ONE (18:19)
[2022-07-27] MEDS ORDERED: Thiamine HCl 100 MG, Folic Acid 1 MG in Dextrose 5 %-0.45 % NaCl 1,000 ML IVPB SCH (18:30)
[2022-07-27 18:39] LABS: ALT (SGPT) 16 U/L (8-55); AST (SGOT) 14 U/L (5-34); Albumin 3.4 g/dL (3.4-4.8); Alkaline Phosphatase 60 U/L (40-110); Anion Gap 20 mmol/L (10-20); BUN (Urea Nitrogen) 17 mg/dL (9.8-20.1); Bilirubin, Total 0.7 mg/dL (0.2-1.2); Calc. Creatinine Clearance 0 mL/min (70-130); Calcium 8.6 mg/dL (7.8-10.44); Carbon Dioxide 21 mmol/L (23-31); Chloride 96 mmol/L (98-107); Estimated GFR 77; Globulin 3.1 g/dL (2.4-3.5); Glucose 134 mg/dL (83-110); Lipase 38 U/L (8-78); Potassium 3.4 mmol/L (3.5-5.1); Protein, Total 6.5 g/dL (5.8-8.1); Sodium 134 mmol/L (136-145)
[2022-07-27] MEDS ORDERED: Potassium Chloride 20 MEQ TAB ONE (19:15)
[2022-07-27] MEDS ORDERED: Potassium Chloride 40 MEQ in Sodium Chloride 0.9% 250 ML 250 ML IVPB SCH (19:30)
[2022-07-27] MEDS ORDERED: diphenhydrAMINE 50 MG/ML VIAL ONE ×2 (19:57→20:38)
[2022-07-27] MEDS ORDERED: Benzocaine 20% Spray 60 ML CAN ONE (20:07)
[2022-07-27] MEDS ORDERED: methylPREDNISolone Sod Succ/PF 125 MG/2 ML VIAL ONE (20:38)
[2022-07-27 21:50] LABS: Bacteria/HPF None Seen HPF (None Seen); Bilirubin Negative (Negative); Blood, Urine 3+ (Negative); Clarity Clear (Clear); Glucose, Urine (Dipstick) Normal (Negative); Ketone, Urine 100 mg/dL (Negative); Leukocyte Negative Leu/uL (Negative); Nitrite Negative (Negative); Protein, Urine (Dipstick) 70 mg/dL (Neg-Trace); RBC/HPF 21-50 HPF (0-3); Squamous Epithelial 0-3 HPF (0-3); WBC/HPF None Seen HPF (0-3); pH, Urine 6.5 (5.0-9.0)
[2022-07-27 21:51] LABS: Specific Gravity, Urine Greater than 1.065 (1.002-1.036)
[2022-07-27] MEDS ORDERED: Acetaminophen 325 MG TAB PO PRN (22:11)
[2022-07-27] MEDS ORDERED: Senokot S 8.6-50 MG TAB PO PRN (22:11)
[2022-07-27] MEDS ORDERED: Bisacodyl 10 MG SUPP PR PRN (22:11)
[2022-07-27] MEDS ORDERED: Ondansetron ODT 4 MG TAB PO PRN (22:11)
[2022-07-27 22:12] LABS: Lactic Acid 1.4 mmol/L (0.5-2.2)
[2022-07-27] MEDS ORDERED: Electrolyte Replacement Protocol 1 EACH FS PRN (22:13)
[2022-07-27] MEDS ORDERED: Dextrose 5%-Lactated Ringers 1,000 ML IV SCH (22:30)
[2022-07-27] MEDS: Ketorolac Tromethamine 30 MG/ML VIAL IVP PRN (23:38)
[2022-07-28 00:34] LABS: SARS-CoV-2 NAA Rapid Test Not Detected (NotDetected)
[2022-07-28 06:25] LABS: Anion Gap 11 mmol/L (10-20); BUN (Urea Nitrogen) 13 mg/dL (9.8-20.1); Calc. Creatinine Clearance 48 mL/min (70-130); Calcium 7.2 mg/dL (7.8-10.44); Carbon Dioxide 21 mmol/L (23-31); Chloride 104 mmol/L (98-107); Estimated GFR 87; Glucose 213 mg/dL (83-110); Potassium 4.1 mmol/L (3.5-5.1); Sodium 132 mmol/L (136-145)
[2022-07-28 06:29] LABS: Band 32 % (5-11); Hemoglobin 11.3 g/dL (12.0-16.0); Hypochromia SLIGHT = 6-15 cells (100X) (0-5/hpf); Lymphocytes 7 % (21-51); MDiff Complete? YES; Mean Corpuscular HGB CONC 33.2 g/dL (32.0-36.0); Mean Corpuscular Hemoglobin 30.7 pg (27.0-31.0); Mean Corpuscular Volume 92.4 fl (78.0-98.0); Mean Platelet Volume 6.8 fL (7.4-10.4); Monocytes 8 % (0-10); Neutrophil 51 % (42-75); Platelet Count 302 10x3/uL (130-400); Platelet Morphology Comment Appears Adequate; RBC Distribution Width 12.6 % (11.5-14.5); Reactive Lymphocytes 2 % (0-10); Red Blood Cell (RBC) Count 3.68 mill/uL (4.20-5.40); White Blood Cell (WBC) Count 9.4 10x3/uL (4.8-10.8)
[2022-07-28] MEDS ORDERED: Ferrous Sulfate 325 MG TAB PO SCH (08:00)
[2022-07-28] MEDS ORDERED: Melatonin 3 MG TAB PO PRN (08:12)
[2022-07-28] MEDS ORDERED: Levothyroxine Sodium 25 MCG TAB PO SCH (09:00)
[2022-07-28] MEDS ORDERED: Multivitamin W/ Minerals 1 TAB PO SCH (09:00)
[2022-07-28] MEDS ORDERED: Famotidine 20 MG TAB PO SCH (09:00)
[2022-07-28] MEDS ORDERED: Metamucil PACK PO SCH (09:00)
[2022-07-28] MEDS: Famotidine/PF 20 mg/2ml Vial SLOW IVP SCH ×2 (09:09→21:56)
[2022-07-28] MEDS: Ketorolac Tromethamine 30 MG/ML VIAL IVP PRN ×2 (09:26→23:33)
[2022-07-28] MEDS: Triamcinolone 0.5 % Ointment 15 Gram Tube TOP SCH ×2 (09:29→22:53)
[2022-07-28] MEDS ORDERED: Phenol 118 ML BOT PO PRN (11:21)
[2022-07-28] MEDS ORDERED: Fentanyl 100 MCG/2 ML VIAL SLOW IVP PRN ×2 (11:45→14:37)
[2022-07-28] MEDS ORDERED: FENTANYL 50 MCG/ML 1 ML VIAL SLOW IVP PRN ×2 (12:00→15:00)
[2022-07-28] MEDS: Ondansetron PF 4 MG/2 ML Vial IVP PRN (14:15)
[2022-07-28] MEDS ORDERED: Dextrose 5%-Lactated Ringers 1,000 ML IV SCH (14:45)
[2022-07-28] MEDS ORDERED: Lactated Ringer's 500 ML IV SCH (15:15)
[2022-07-28] MEDS ORDERED: Sodium Chloride 0.9% 1,000 ML IV SCH (17:30)
[2022-07-28] MEDS ORDERED: MD-Gastroview 120 ML BOT ONE (18:08)
[2022-07-28] MEDS ORDERED: Levofloxacin 500 mg/D5W 100 ml Premix Bag ONE (18:25)
[2022-07-28] MEDS ORDERED: Albumin 5% 500 ML ONE (18:28)
[2022-07-28] MEDS ORDERED: fentaNYL PF 100 MCG/2 ML SYRINGE ONE (18:33)
[2022-07-28] MEDS ORDERED: Rocuronium Bromide 10 MG/ML (10ML VIAL) ONE (18:36)
[2022-07-28] MEDS ORDERED: PHENYLEPHRINE-NS 100 MCG/ML 10 ML SYRINGE ONE (18:36)
[2022-07-28] MEDS ORDERED: Succinylcholine Chloride 100 MG/5 ML SYRINGE FS ONE (18:36)
[2022-07-28] MEDS ORDERED: Midazolam HCl 2 mg/2 ml Vial ONE (19:51)
[2022-07-28] MEDS: Lactated Ringer's 1,000 ML IV SCH (20:45)
[2022-07-28 20:50] LABS: Actual Bicarbonate (HCO3a) 22.1 mEq/L (22-28); Base Excess (BEa) -2.4 mEq/L (-2.0 to +3.0); CO2 Tension 37.4 mmHg (35.0-45.0); Calcium, Ionized (arterial) 1.09 mmol/L (1.12-1.30); Carboxyhemoglobin (COHb) 0.4 gm% (0.0-3.0); O2 Tension (PaO2), arterial 147.7 mmHg (> 60.0); Potassium - ABG Lab 2.99 mmol/L (3.70-5.30); pH, Arterial 7.39 (7.35-7.45)
[2022-07-28 20:58] LABS: Puncture Site LBA
[2022-07-28] MEDS ORDERED: Meropenem 1 GM in Sodium Chloride 0.9% 100 ML IVPB SCH ×2 (21:00→22:00)
[2022-07-28] MEDS ORDERED: Melatonin 3 MG TAB PO SCH (21:00)
[2022-07-28] MEDS ORDERED: Ventilator Sedation Protocol 1 EACH FS SCH (21:30)
[2022-07-28] MEDS ORDERED: Electrolyte Replacement Protocol 1 EACH FS SCH (21:30)
[2022-07-28] MEDS ORDERED: Fentanyl BOLUS 250 ML IVPB PRN (21:45)
[2022-07-28] MEDS ORDERED: DISCONTINUE PREVIOUS NARCOTIC PAIN MEDICATIONS AND BENZODIAZEPINES FS SCH (21:45)
[2022-07-28] MEDS ORDERED: Propofol 1,000 MG/100 ML VIAL IV PRN (21:45)
[2022-07-28] MEDS ORDERED: Propofol BOLUS 1,000 MG/100 ML VIAL IV PRN (21:45)
[2022-07-28] MEDS ORDERED: Morphine 2 MG/ML VIAL SLOW IVP PRN (21:45)
[2022-07-28] MEDS: Latanoprost 0.005% Ophth Soln 2.5 ml Bottle EA EYE SCH (22:21)
[2022-07-28] MEDS: Lorazepam 2 MG/ML VIAL SLOW IVP PRN (23:33)
[2022-07-29] MEDS ORDERED: Fentanyl 100 MCG/2 ML VIAL SLOW IVP PRN (01:05)
[2022-07-29] MEDS: Lactated Ringer's 1,000 ML IV SCH ×5 (01:12→20:30)
[2022-07-29] MEDS: Lactated Ringer's 500 ML IV SCH ×2 (01:32→02:05)
[2022-07-29] MEDS: Albumin 25% 25 GM/100 ML BOT IVPB SCH ×4 (02:33→21:00)
[2022-07-29] MEDS ORDERED: Phenylephrine 10 MG/NS 250 ML 10 MG in Premix Bag 1 BAG IVPB SCH (03:30)
[2022-07-29] MEDS ORDERED: Phenylephrine 10 MG in Sodium Chloride 0.9% 250 ML 250 ML IVPB SCH (03:45)
[2022-07-29] MEDS ORDERED: Phenylephrine 40 MG/NS 250 ML 40 MG in Premix Bag 1 BAG IVPB SCH (03:45)
[2022-07-29] MEDS: Meropenem 1 GM in Sodium Chloride 0.9% 100 ML IVPB SCH ×3 (04:35→21:59)
[2022-07-29 06:01] LABS: Lactic Acid 3.3 mmol/L (0.5-2.2)
[2022-07-29 06:05] LABS: Anion Gap 13 mmol/L (10-20); BUN (Urea Nitrogen) 15 mg/dL (9.8-20.1); Calc. Creatinine Clearance 53 mL/min (70-130); Calcium 7.3 mg/dL (7.8-10.44); Carbon Dioxide 21 mmol/L (23-31); Chloride 109 mmol/L (98-107); Estimated GFR 89; Glucose 101 mg/dL (83-110); Potassium 3.6 mmol/L (3.5-5.1); Sodium 139 mmol/L (136-145)
[2022-07-29 06:08] LABS: Hemoglobin 11.1 g/dL (12.0-16.0); Mean Corpuscular HGB CONC 32.3 g/dL (32.0-36.0); Mean Corpuscular Hemoglobin 30.1 pg (27.0-31.0); Mean Corpuscular Volume 93.1 fl (78.0-98.0); Mean Platelet Volume 7.2 fL (7.4-10.4); Platelet Count 294 10x3/uL (130-400); RBC Distribution Width 12.9 % (11.5-14.5); Red Blood Cell (RBC) Count 3.68 mill/uL (4.20-5.40); White Blood Cell (WBC) Count 8.6 10x3/uL (4.8-10.8)
[2022-07-29 06:33] LABS: Band 59 % (5-11); Eosinophils 1 % (0-10); Lymphocytes 6 % (21-51); MDiff Complete? YES; Monocytes 2 % (0-10); Neutrophil 32 % (42-75); Platelet Morphology Comment Appears Adequate; RBC Morphology Normal; Vacuoles SLIGHT
[2022-07-29 06:47] LABS: Actual Bicarbonate (HCO3a) 23.3 mEq/L (22-28); Base Excess (BEa) 1.1 mEq/L (-2.0 to +3.0); CO2 Tension 28.9 mmHg (35.0-45.0); Calcium, Ionized (arterial) 1.02 mmol/L (1.12-1.30); Carboxyhemoglobin (COHb) 0.3 gm% (0.0-3.0); Hemoglobin (Hb) 10.4 g/dL (12.0-16.0); pH, Arterial 7.52 (7.35-7.45)
[2022-07-29 06:49] LABS: ALT (SGPT) Less than 7 U/L (8-55); AST (SGOT) 11 U/L (5-34); Albumin 2.7 g/dL (3.4-4.8); Alkaline Phosphatase 30 U/L (40-110); Bilirubin, Direct 0.3 mg/dL (0.1-0.3); Bilirubin, Total 0.5 mg/dL (0.2-1.2); Protein, Total 4.1 g/dL (5.8-8.1)
[2022-07-29 06:58] LABS: ALV-art Gradient 95.425 mmHg (0-20); Puncture Site RBA
[2022-07-29] MEDS: Famotidine/PF 20 mg/2ml Vial SLOW IVP SCH ×2 (08:35→21:08)
[2022-07-29] MEDS: Fentanyl CADD 100 ML IV SCH (09:20)
[2022-07-29] MEDS ORDERED: NOREPINEPHRINE 8 MG/250 ML-D5W 250 ML IVPB SCH (15:45)
[2022-07-29] MEDS: Latanoprost 0.005% Ophth Soln 2.5 ml Bottle EA EYE SCH (21:33)
[2022-07-30] MEDS: Lactated Ringer's 1,000 ML IV SCH ×2 (00:43→06:22)
[2022-07-30 04:22] LABS: Mean Corpuscular HGB CONC 32.4 g/dL (32.0-36.0); Mean Corpuscular Volume 95.7 fl (78.0-98.0); Mean Platelet Volume 7.4 fL (7.4-10.4); Platelet Count 189 10x3/uL (130-400); RBC Distribution Width 12.8 % (11.5-14.5); Red Blood Cell (RBC) Count 2.91 mill/uL (4.20-5.40); White Blood Cell (WBC) Count 10.5 10x3/uL (4.8-10.8)
[2022-07-30] MEDS: Meropenem 1 GM in Sodium Chloride 0.9% 100 ML IVPB SCH ×3 (04:36→21:08)
[2022-07-30 04:38] LABS: ALT (SGPT) Less than 7 U/L (8-55); AST (SGOT) 12 U/L (5-34); Alkaline Phosphatase 30 U/L (40-110); Anion Gap 13 mmol/L (10-20); BUN (Urea Nitrogen) 17 mg/dL (9.8-20.1); Bilirubin, Total 0.6 mg/dL (0.2-1.2); Calc. Creatinine Clearance 64 mL/min (70-130); Calcium 7.5 mg/dL (7.8-10.44); Carbon Dioxide 20 mmol/L (23-31); Chloride 109 mmol/L (98-107); Estimated GFR 93; Globulin 1.3 g/dL (2.4-3.5); Glucose 58 mg/dL (83-110); Potassium 3.6 mmol/L (3.5-5.1); Protein, Total 4.3 g/dL (5.8-8.1); Sodium 138 mmol/L (136-145)
[2022-07-30] MEDS ORDERED: Dextrose 5% in Water 1,000 ML IV PRN (05:15)
[2022-07-30] MEDS ORDERED: Dextrose 50% Abboject 50 ML SYRINGE IVP PRN (05:15)
[2022-07-30 05:27] LABS: Band 46 % (5-11); Lymphocytes 3 % (21-51); MDiff Complete? YES; Metamyelocyte 1 % (0-0); Monocytes 2 % (0-10); Neutrophil 48 % (42-75)
[2022-07-30] MEDS: Famotidine/PF 20 mg/2ml Vial SLOW IVP SCH ×2 (08:20→21:09)
[2022-07-30] MEDS ORDERED: Sodium Chloride 0.45% 1,000 ML IV SCH (10:45)
[2022-07-30] MEDS: Fentanyl CADD 100 ML IV SCH (17:17)
[2022-07-30] MEDS: Latanoprost 0.005% Ophth Soln 2.5 ml Bottle EA EYE SCH (20:45)
[2022-07-30] MEDS ORDERED: Dextrose 5 % And 0.9 % NaCl 1,000 ML IV SCH (21:45)
[2022-07-30] MEDS: D5 1/2 NS w/20 mEq KCL 1,000 ML IV SCH (23:05)
[2022-07-31 05:25] LABS: Hemoglobin 10.1 g/dL (12.0-16.0); Mean Corpuscular HGB CONC 31.8 g/dL (32.0-36.0); Mean Corpuscular Volume 97.2 fl (78.0-98.0); Mean Platelet Volume 7.1 fL (7.4-10.4); Platelet Count 194 10x3/uL (130-400); RBC Distribution Width 12.8 % (11.5-14.5); Red Blood Cell (RBC) Count 3.25 mill/uL (4.20-5.40); White Blood Cell (WBC) Count 11.4 10x3/uL (4.8-10.8)
[2022-07-31 05:48] LABS: Anion Gap 13 mmol/L (10-20); BUN (Urea Nitrogen) 16 mg/dL (9.8-20.1); Calc. Creatinine Clearance 80 mL/min (70-130); Carbon Dioxide 15 mmol/L (23-31); Chloride 110 mmol/L (98-107); Estimated GFR 96; Glucose 110 mg/dL (83-110); Potassium 3.5 mmol/L (3.5-5.1); Sodium 134 mmol/L (136-145)
[2022-07-31] MEDS: Meropenem 1 GM in Sodium Chloride 0.9% 100 ML IVPB SCH ×3 (06:00→20:54)
[2022-07-31] MEDS: Potassium Chloride 20 MEQ in Premix Bag 1 BAG IVPB SCH ×2 (08:10→09:51)
[2022-07-31] MEDS: Famotidine/PF 20 mg/2ml Vial SLOW IVP SCH ×2 (08:11→20:55)
[2022-07-31] MEDS: D5 1/2 NS w/20 mEq KCL 1,000 ML IV SCH ×2 (08:45→18:13)
[2022-07-31] MEDS: Albumin 25% 25 GM/100 ML BOT IVPB SCH ×3 (11:21→23:14)
[2022-07-31] MEDS: Lorazepam 2 MG/ML VIAL SLOW IVP PRN (15:36)
[2022-07-31] MEDS: Latanoprost 0.005% Ophth Soln 2.5 ml Bottle EA EYE SCH (20:55)
[2022-07-31] MEDS: Fentanyl CADD 100 ML IV SCH (21:16)
[2022-08-01 04:40] LABS: Hemoglobin 8.8 g/dL (12.0-16.0); Mean Corpuscular HGB CONC 32.1 g/dL (32.0-36.0); Mean Corpuscular Hemoglobin 30.2 pg (27.0-31.0); Mean Corpuscular Volume 94.2 fl (78.0-98.0); Mean Platelet Volume 7.7 fL (7.4-10.4); Platelet Count 132 10x3/uL (130-400); RBC Distribution Width 13.1 % (11.5-14.5); Red Blood Cell (RBC) Count 2.91 mill/uL (4.20-5.40); White Blood Cell (WBC) Count 9.3 10x3/uL (4.8-10.8)
[2022-08-01 04:47] LABS: Anion Gap 9 mmol/L (10-20); BUN (Urea Nitrogen) 13 mg/dL (9.8-20.1); Calc. Creatinine Clearance 87 mL/min (70-130); Calcium 7.3 mg/dL (7.8-10.44); Carbon Dioxide 19 mmol/L (23-31); Chloride 110 mmol/L (98-107); Estimated GFR 97; Glucose 134 mg/dL (83-110); Potassium 4.1 mmol/L (3.5-5.1); Sodium 134 mmol/L (136-145)
[2022-08-01] MEDS: Meropenem 1 GM in Sodium Chloride 0.9% 100 ML IVPB SCH ×3 (04:56→21:22)
[2022-08-01] MEDS: D5 1/2 NS w/20 mEq KCL 1,000 ML IV SCH ×3 (04:56→16:50)
[2022-08-01] MEDS: Albumin 25% 25 GM/100 ML BOT IVPB SCH ×2 (04:57→11:21)
[2022-08-01 06:03] LABS: Band 23 % (5-11); Lymphocytes 3 % (21-51); MDiff Complete? YES; Monocytes 6 % (0-10); Neutrophil 67 % (42-75); Reactive Lymphocytes 1 % (0-10)
[2022-08-01] MEDS ORDERED: Levothyroxine 100 MCG SDV IVP SCH (08:00)
[2022-08-01] MEDS: Famotidine/PF 20 mg/2ml Vial SLOW IVP SCH ×2 (09:23→21:18)
[2022-08-01] MEDS: Latanoprost 0.005% Ophth Soln 2.5 ml Bottle EA EYE SCH (21:18)
[2022-08-02] MEDS: D5 1/2 NS w/20 mEq KCL 1,000 ML IV SCH ×2 (01:26→08:37)
[2022-08-02] MEDS: Meropenem 1 GM in Sodium Chloride 0.9% 100 ML IVPB SCH ×3 (05:05→23:10)
[2022-08-02] MEDS ORDERED: Levothyroxine 100 MCG SDV IVP SCH (06:00)
[2022-08-02] MEDS: Famotidine/PF 20 mg/2ml Vial SLOW IVP SCH (08:36)
[2022-08-02] MEDS ORDERED: D5 1/2 NS w/20 mEq KCL 1,000 ML IV SCH (09:40)
[2022-08-02] MEDS ORDERED: Furosemide 20 MG/2 ML VIAL SLOW IVP SCH ×2 (09:45→14:00)
[2022-08-02 10:53] LABS: Hemoglobin 9.4 g/dL (12.0-16.0); Mean Corpuscular HGB CONC 31.6 g/dL (32.0-36.0); Mean Corpuscular Hemoglobin 29.6 pg (27.0-31.0); Mean Corpuscular Volume 93.5 fl (78.0-98.0); Platelet Count 118 10x3/uL (130-400); RBC Distribution Width 13.4 % (11.5-14.5); Red Blood Cell (RBC) Count 3.17 mill/uL (4.20-5.40); White Blood Cell (WBC) Count 11.8 10x3/uL (4.8-10.8)
[2022-08-02 13:05] LABS: Band 28 % (5-11); Lymphocytes 7 % (21-51); MDiff Complete? YES; Metamyelocyte 1 % (0-0); Monocytes 8 % (0-10); Neutrophil 56 % (42-75); Platelet Morphology Comment Appears Decreased; Polychromasia SLIGHT = 2-3 cells (100X) (0-2/hpf)
[2022-08-02] MEDS: Multivitamins, Adult 10 ML, TRACE ELEMENT CONCENTRATE 1 ML in D15W-AA 5% with Lytes 2,0... IV SCH ×2 (15:21→22:22)
[2022-08-02] MEDS: Fentanyl CADD 100 ML IV SCH (15:26)
[2022-08-02] MEDS ORDERED: Sodium Bicarbonate 50 MEQ in Sodium Chloride 0.45% 1,000 ML IV SCH (19:00)
[2022-08-02] MEDS ORDERED: Midazolam HCl 5 mg/5 ml Vial ONE (19:24)
[2022-08-02] MEDS ORDERED: fentaNYL PF 100 MCG/2 ML SYRINGE ONE (19:25)
[2022-08-02] MEDS ORDERED: Ondansetron PF 4 MG/2 ML Vial ONE (19:50)
[2022-08-02] MEDS ORDERED: Rocuronium Bromide 10 MG/ML (10ML VIAL) ONE (19:50)
[2022-08-02] MEDS ORDERED: VANCOMYCIN 1.25 GM/250 ML BAG IVPB SCH (21:00)
[2022-08-02] MEDS ORDERED: VANCOMYCIN 1.25 GM/250 ML BAG 1.25 GM in Premix Bag 1 BAG IVPB SCH (22:00)
[2022-08-02 22:35] LABS: Lactic Acid 1.4 mmol/L (0.5-2.2)
[2022-08-02 22:38] LABS: Hemoglobin 10.3 g/dL (12.0-16.0); Mean Corpuscular HGB CONC 32.3 g/dL (32.0-36.0); Mean Corpuscular Hemoglobin 30.1 pg (27.0-31.0); Mean Corpuscular Volume 93.1 fl (78.0-98.0); Mean Platelet Volume 8.5 fL (7.4-10.4); Platelet Count 130 10x3/uL (130-400); RBC Distribution Width 13.6 % (11.5-14.5); Red Blood Cell (RBC) Count 3.43 mill/uL (4.20-5.40); White Blood Cell (WBC) Count 15.4 10x3/uL (4.8-10.8)
[2022-08-02 22:47] LABS: ALT (SGPT) 8 U/L (8-55); AST (SGOT) 28 U/L (5-34); Albumin 2.4 g/dL (3.4-4.8); Alkaline Phosphatase 47 U/L (40-110); Anion Gap 13 mmol/L (10-20); BUN (Urea Nitrogen) 14 mg/dL (9.8-20.1); Bilirubin, Total 1.5 mg/dL (0.2-1.2); Calc. Creatinine Clearance 0 mL/min (70-130); Calcium 7.7 mg/dL (7.8-10.44); Carbon Dioxide 20 mmol/L (23-31); Chloride 106 mmol/L (98-107); Cholesterol 42 mg/dl (< 200 Desired); Estimated GFR 96; Globulin 1.3 g/dL (2.4-3.5); Glucose 105 mg/dL (83-110); HDL Cholesterol Less than 8 mg/dL (>60 Neg Risk); Magnesium 1.4 mg/dL (1.6-2.6); Phosphorus 2.6 mg/dL (2.3-4.7); Potassium 3.9 mmol/L (3.5-5.1); Protein, Total 3.7 g/dL (5.8-8.1); Sodium 135 mmol/L (136-145); Triglycerides 79 mg/dL (Less than 150)
[2022-08-02 22:49] LABS: INR-International Normal Ratio 1.5; PTT 37.5 sec (22.9-36.1)
[2022-08-02 22:53] LABS: Band 14 % (5-11); Eosinophils 1 % (0-10); Lymphocytes 4 % (21-51); MDiff Complete? YES; Monocytes 5 % (0-10); Myelocyte 1 % (0-0); Neutrophil 73 % (42-75); Reactive Lymphocytes 2 % (0-10); Toxic Granulation SLIGHT
[2022-08-02] MEDS ORDERED: Magnesium Sulfate In Water 4 GM in Premix Bag 1 BAG IVPB SCH (23:00)
[2022-08-02] MEDS ORDERED: Magnesium 2 GM/50 ML(in water) 4 GM in Premix Bag 1 BAG IVPB SCH (23:00)
[2022-08-02] MEDS: Latanoprost 0.005% Ophth Soln 2.5 ml Bottle EA EYE SCH (23:15)
[2022-08-03] MEDS: Ascorbic Acid 500 mg Chewable Tablet PO SCH ×3 (01:20→20:52)
[2022-08-03] MEDS: Famotidine/PF 20 mg/2ml Vial SLOW IVP SCH ×3 (01:20→20:52)
[2022-08-03 04:40] LABS: Hemoglobin 9.9 g/dL (12.0-16.0); Mean Corpuscular HGB CONC 31.7 g/dL (32.0-36.0); Mean Corpuscular Hemoglobin 29.5 pg (27.0-31.0); Mean Corpuscular Volume 93.3 fl (78.0-98.0); Platelet Count 106 10x3/uL (130-400); RBC Distribution Width 13.6 % (11.5-14.5); Red Blood Cell (RBC) Count 3.37 mill/uL (4.20-5.40); White Blood Cell (WBC) Count 13.3 10x3/uL (4.8-10.8)
[2022-08-03 04:58] LABS: Phosphorus 2.6 mg/dL (2.3-4.7)
[2022-08-03 05:07] LABS: ALT (SGPT) 9 U/L (8-55); AST (SGOT) 22 U/L (5-34); Albumin 2.1 g/dL (3.4-4.8); Alkaline Phosphatase 42 U/L (40-110); Anion Gap 8 mmol/L (10-20); BUN (Urea Nitrogen) 17 mg/dL (9.8-20.1); Bilirubin, Total 1.1 mg/dL (0.2-1.2); Calc. Creatinine Clearance 0 mL/min (70-130); Calcium 7.5 mg/dL (7.8-10.44); Carbon Dioxide 23 mmol/L (23-31); Chloride 106 mmol/L (98-107); Estimated GFR 94; Globulin 1.3 g/dL (2.4-3.5); Glucose 140 mg/dL (83-110); Magnesium 2.3 mg/dL (1.6-2.6); Potassium 3.7 mmol/L (3.5-5.1); Protein, Total 3.4 g/dL (5.8-8.1); Sodium 133 mmol/L (136-145)
[2022-08-03 05:08] LABS: Hemoglobin 8.8 g/dL (12.0-16.0); Mean Corpuscular HGB CONC 32.6 g/dL (32.0-36.0); Mean Corpuscular Hemoglobin 30.4 pg (27.0-31.0); Mean Corpuscular Volume 93.3 fl (78.0-98.0); Mean Platelet Volume 9.1 fL (7.4-10.4); Platelet Count 119 10x3/uL (130-400); RBC Distribution Width 13.5 % (11.5-14.5); White Blood Cell (WBC) Count 15.2 10x3/uL (4.8-10.8)
[2022-08-03] MEDS: Meropenem 1 GM in Sodium Chloride 0.9% 100 ML IVPB SCH ×3 (05:33→20:52)
[2022-08-03 06:00] LABS: Band 20 % (5-11); Lymphocytes 4 % (21-51); MDiff Complete? YES; Monocytes 6 % (0-10); Neutrophil 69 % (42-75); Platelet Morphology Comment Appears Decreased; Reactive Lymphocytes 1 % (0-10)
[2022-08-03] MEDS ORDERED: Levothyroxine 100 MCG SDV IVP SCH ×3 (06:00→17:00)
[2022-08-03 07:02] LABS: Base Excess (BEa) 0.5 mEq/L (-2.0 to +3.0); CO2 Tension 29.3 mmHg (35.0-45.0); Calcium, Ionized (arterial) 1.13 mmol/L (1.12-1.30); Carboxyhemoglobin (COHb) 0.7 gm% (0.0-3.0); Hemoglobin (Hb) 9.2 g/dL (12.0-16.0); O2 Tension (PaO2), arterial 66.1 mmHg (> 60.0); Potassium - ABG Lab 3.88 mmol/L (3.70-5.30); pH, Arterial 7.51 (7.35-7.45)
[2022-08-03 07:05] LABS: Puncture Site RBA
[2022-08-03 07:06] LABS: ALV-art Gradient 146.825 mmHg (0-20)
[2022-08-03] MEDS: Zinc Sulfate 220 MG CAP PO SCH (08:13)
[2022-08-03] MEDS: Vancomycin 1 GM in Premix Bag 1 BAG IVPB SCH ×2 (09:27→21:11)
[2022-08-03 09:52] LABS: Magnesium 2.1 mg/dL (1.6-2.6); Phosphorus 2.6 mg/dL (2.3-4.7)
[2022-08-03] MEDS ORDERED: Multivitamins, Adult 10 ML, TRACE ELEMENT CONCENTRATE 1 ML in D15W-AA 5% with Lytes 2,0... IV SCH (14:00)
[2022-08-03] MEDS: Latanoprost 0.005% Ophth Soln 2.5 ml Bottle EA EYE SCH (20:52)
[2022-08-04 04:00] LABS: Hemoglobin 8.5 g/dL (12.0-16.0); Mean Corpuscular HGB CONC 32.7 g/dL (32.0-36.0); Mean Corpuscular Hemoglobin 30.5 pg (27.0-31.0); Mean Corpuscular Volume 93.2 fl (78.0-98.0); Mean Platelet Volume 9.8 fL (7.4-10.4); Platelet Count 125 10x3/uL (130-400); RBC Distribution Width 13.7 % (11.5-14.5)
[2022-08-04 04:21] LABS: ALT (SGPT) 8 U/L (8-55); AST (SGOT) 22 U/L (5-34); Albumin 1.7 g/dL (3.4-4.8); Alkaline Phosphatase 48 U/L (40-110); Anion Gap 9 mmol/L (10-20); BUN (Urea Nitrogen) 25 mg/dL (9.8-20.1); Bilirubin, Total 0.7 mg/dL (0.2-1.2); Calc. Creatinine Clearance 89 mL/min (70-130); Calcium 7.5 mg/dL (7.8-10.44); Carbon Dioxide 23 mmol/L (23-31); Chloride 104 mmol/L (98-107); Estimated GFR 96; Globulin 1.6 g/dL (2.4-3.5); Glucose 140 mg/dL (83-110); Magnesium 1.8 mg/dL (1.6-2.6); Potassium 3.8 mmol/L (3.5-5.1); Protein, Total 3.3 g/dL (5.8-8.1); Sodium 132 mmol/L (136-145)
[2022-08-04 04:25] LABS: Phosphorus 2.3 mg/dL (2.3-4.7)
[2022-08-04] MEDS ORDERED: Fentanyl CADD 100 ML ONE (04:46)
[2022-08-04] MEDS: Fentanyl CADD 100 ML IV SCH (04:51)
[2022-08-04] MEDS: Meropenem 1 GM in Sodium Chloride 0.9% 100 ML IVPB SCH ×3 (04:51→21:29)
[2022-08-04 07:43] LABS: Actual Bicarbonate (HCO3a) 22.9 mEq/L (22-28); Base Excess (BEa) -0.2 mEq/L (-2.0 to +3.0); CO2 Tension 31.3 mmHg (35.0-45.0); Calcium, Ionized (arterial) 1.14 mmol/L (1.12-1.30); Carboxyhemoglobin (COHb) 0.1 gm% (0.0-3.0); Hemoglobin (Hb) 8.9 g/dL (12.0-16.0); O2 Tension (PaO2), arterial 79.6 mmHg (> 60.0); Potassium - ABG Lab 3.75 mmol/L (3.70-5.30); pH, Arterial 7.48 (7.35-7.45)
[2022-08-04 07:44] LABS: ALV-art Gradient 130.825 mmHg (0-20); Puncture Site LRA
[2022-08-04] MEDS ORDERED: Magnesium 2 GM/50 ML(in water) 2 GM in Premix Bag 1 BAG IVPB SCH (08:00)
[2022-08-04] MEDS: Ascorbic Acid 500 mg Chewable Tablet PO SCH ×3 (08:38→21:29)
[2022-08-04] MEDS: Famotidine/PF 20 mg/2ml Vial SLOW IVP SCH ×2 (08:38→21:30)
[2022-08-04] MEDS ORDERED: Levothyroxine 100 MCG SDV IVP SCH (09:45)
[2022-08-04] MEDS ORDERED: Albumin 25% 25 GM/100 ML BOT IVPB SCH (09:45)
[2022-08-04 09:51] LABS: Vancomycin, Trough 12.8 ug/mL
[2022-08-04] MEDS: Vancomycin 1 GM in Premix Bag 1 BAG IVPB SCH ×3 (10:00→23:36)
[2022-08-04] MEDS ORDERED: VANCOMYCIN 1.25 GM/250 ML BAG 1.25 GM in Premix Bag 1 BAG IVPB SCH (11:00)
[2022-08-04] MEDS ORDERED: Furosemide 20 MG/2 ML VIAL SLOW IVP SCH (12:00)
[2022-08-04] MEDS ORDERED: SODIUM ACETATE IV SCH (14:00)
[2022-08-04] MEDS ORDERED: [UNRECOGNIZED DRUG - OTHER] IV SCH (14:00)
[2022-08-04] MEDS ORDERED: POTASSIUM CHLORIDE IV SCH (14:00)
[2022-08-04] MEDS ORDERED: SODIUM CHLORIDE IV SCH (14:00)
[2022-08-04] MEDS: Latanoprost 0.005% Ophth Soln 2.5 ml Bottle EA EYE SCH (21:29)
[2022-08-05 04:24] LABS: Mean Corpuscular HGB CONC 32.5 g/dL (32.0-36.0); Mean Corpuscular Hemoglobin 30.1 pg (27.0-31.0); Mean Corpuscular Volume 92.5 fl (78.0-98.0); Mean Platelet Volume 9.5 fL (7.4-10.4); Platelet Count 175 10x3/uL (130-400); RBC Distribution Width 13.9 % (11.5-14.5); Red Blood Cell (RBC) Count 2.64 mill/uL (4.20-5.40); White Blood Cell (WBC) Count 21.5 10x3/uL (4.8-10.8)
[2022-08-05 04:41] LABS: ALT (SGPT) 16 U/L (8-55); AST (SGOT) 39 U/L (5-34); Albumin 2.3 g/dL (3.4-4.8); Alkaline Phosphatase 79 U/L (40-110); Anion Gap 10 mmol/L (10-20); BUN (Urea Nitrogen) 25 mg/dL (9.8-20.1); Bilirubin, Total 1.2 mg/dL (0.2-1.2); Calc. Creatinine Clearance 87 mL/min (70-130); Calcium 7.7 mg/dL (7.8-10.44); Carbon Dioxide 23 mmol/L (23-31); Chloride 101 mmol/L (98-107); Estimated GFR 96; Globulin 1.8 g/dL (2.4-3.5); Glucose 117 mg/dL (83-110); Magnesium 1.9 mg/dL (1.6-2.6); Potassium 3.8 mmol/L (3.5-5.1); Protein, Total 4.1 g/dL (5.8-8.1); Sodium 130 mmol/L (136-145)
[2022-08-05 04:46] LABS: Phosphorus 2.9 mg/dL (2.3-4.7)
[2022-08-05] MEDS: Meropenem 1 GM in Sodium Chloride 0.9% 100 ML IVPB SCH ×3 (05:13→21:13)
[2022-08-05] MEDS: Levothyroxine 100 MCG SDV IVP SCH (05:18)
[2022-08-05] MEDS ORDERED: Magnesium 2 GM/50 ML(in water) 2 GM in Premix Bag 1 BAG IVPB SCH (08:00)
[2022-08-05] MEDS: Famotidine/PF 20 mg/2ml Vial SLOW IVP SCH ×2 (08:30→21:15)
[2022-08-05] MEDS: Ascorbic Acid 500 mg Chewable Tablet PO SCH ×2 (08:31→21:15)
[2022-08-05] MEDS ORDERED: Furosemide 40 MG/4 ML VIAL SLOW IVP SCH (09:00)
[2022-08-05] MEDS: Vancomycin 1 GM in Premix Bag 1 BAG IVPB SCH (10:16)
[2022-08-05] MEDS: Micafungin 100 MG in Sodium Chloride 0.9% 100 ML IVPB SCH (12:26)
[2022-08-05] MEDS ORDERED: POTASSIUM CHLORIDE IV SCH (14:00)
[2022-08-05] MEDS ORDERED: SODIUM ACETATE IV SCH (14:00)
[2022-08-05] MEDS ORDERED: SODIUM CHLORIDE IV SCH (14:00)
[2022-08-05] MEDS ORDERED: [UNRECOGNIZED DRUG - OTHER] IV SCH (14:00)
[2022-08-05] MEDS ORDERED: Multivitamins, Adult 10 ML, TRACE ELEMENT CONCENTRATE 1 ML in D15W-AA 5% with Lytes 2,0... IV SCH (14:00)
[2022-08-05] MEDS: Latanoprost 0.005% Ophth Soln 2.5 ml Bottle EA EYE SCH (21:14)
[2022-08-05 23:06] LABS: Vancomycin, Trough 17.3 ug/mL
[2022-08-06] MEDS: Vancomycin 1 GM in Premix Bag 1 BAG IVPB SCH ×3 (00:22→23:32)
[2022-08-06] MEDS ORDERED: Fentanyl CADD 100 ML ONE (04:28)
[2022-08-06] MEDS: Fentanyl CADD 100 ML IV SCH (04:38)
[2022-08-06] MEDS: Meropenem 1 GM in Sodium Chloride 0.9% 100 ML IVPB SCH ×3 (04:42→20:45)
[2022-08-06 04:44] LABS: Anion Gap 9 mmol/L (10-20); BUN (Urea Nitrogen) 27 mg/dL (9.8-20.1); Calc. Creatinine Clearance 91 mL/min (70-130); Calcium 7.7 mg/dL (7.8-10.44); Carbon Dioxide 25 mmol/L (23-31); Chloride 99 mmol/L (98-107); Estimated GFR 97; Glucose 106 mg/dL (83-110); Magnesium 1.9 mg/dL (1.6-2.6); Phosphorus 3.6 mg/dL (2.3-4.7); Potassium 3.8 mmol/L (3.5-5.1); Sodium 129 mmol/L (136-145)
[2022-08-06 04:46] LABS: Hemoglobin 7.3 g/dL (12.0-16.0); MDiff Complete? YES; Mean Corpuscular HGB CONC 33.2 g/dL (32.0-36.0); Mean Corpuscular Hemoglobin 30.7 pg (27.0-31.0); Mean Corpuscular Volume 92.5 fl (78.0-98.0); Mean Platelet Volume 9.2 fL (7.4-10.4); Platelet Count 206 10x3/uL (130-400); RBC Distribution Width 13.9 % (11.5-14.5); Red Blood Cell (RBC) Count 2.38 mill/uL (4.20-5.40); White Blood Cell (WBC) Count 17.4 10x3/uL (4.8-10.8)
[2022-08-06 04:47] LABS: Band 48 % (5-11); Hypochromia SLIGHT = 6-15 cells (100X) (0-5/hpf); Monocytes 2 % (0-10); Neutrophil 50 % (42-75); Platelet Morphology Comment Appears Adequate
[2022-08-06] MEDS: Levothyroxine 100 MCG SDV IVP SCH (05:18)
[2022-08-06] MEDS ORDERED: Furosemide 40 MG/4 ML VIAL SLOW IVP SCH (08:00)
[2022-08-06] MEDS ORDERED: Magnesium 2 GM/50 ML(in water) 2 GM in Premix Bag 1 BAG IVPB SCH (08:00)
[2022-08-06] MEDS: Famotidine/PF 20 mg/2ml Vial SLOW IVP SCH ×2 (08:10→20:41)
[2022-08-06] MEDS: Ascorbic Acid 500 mg Chewable Tablet PO SCH ×2 (08:10→20:41)
[2022-08-06] MEDS: Micafungin 100 MG in Sodium Chloride 0.9% 100 ML IVPB SCH (12:10)
[2022-08-06] MEDS ORDERED: Multivitamins, Adult 10 ML, TRACE ELEMENT CONCENTRATE 1 ML in D15W-AA 5% with Lytes 2,0... IV SCH (14:00)
[2022-08-06] MEDS: Latanoprost 0.005% Ophth Soln 2.5 ml Bottle EA EYE SCH (20:44)
[2022-08-07 05:01] LABS: Band 4 % (5-11); Eosinophils 2 % (0-10); Lymphocytes 6 % (21-51); MDiff Complete? YES; Mean Corpuscular Hemoglobin 29.7 pg (27.0-31.0); Mean Platelet Volume 9.3 fL (7.4-10.4); Metamyelocyte 1 % (0-0); Monocytes 10 % (0-10); Myelocyte 2 % (0-0); Neutrophil 75 % (42-75); Platelet Count 241 10x3/uL (130-400); Platelet Morphology Comment Appears Adequate; RBC Morphology Normal; Red Blood Cell (RBC) Count 2.35 mill/uL (4.20-5.40); White Blood Cell (WBC) Count 13.2 10x3/uL (4.8-10.8)
[2022-08-07 05:04] LABS: Anion Gap 6 mmol/L (10-20); BUN (Urea Nitrogen) 25 mg/dL (9.8-20.1); Calc. Creatinine Clearance 100 mL/min (70-130); Calcium 7.7 mg/dL (7.8-10.44); Carbon Dioxide 29 mmol/L (23-31); Chloride 98 mmol/L (98-107); Estimated GFR 97; Glucose 99 mg/dL (83-110); Magnesium 1.9 mg/dL (1.6-2.6); Phosphorus 3.8 mg/dL (2.3-4.7); Potassium 4.1 mmol/L (3.5-5.1); Sodium 129 mmol/L (136-145)
[2022-08-07] MEDS: Meropenem 1 GM in Sodium Chloride 0.9% 100 ML IVPB SCH ×3 (05:08→21:31)
[2022-08-07] MEDS: Levothyroxine 100 MCG SDV IVP SCH (05:08)
[2022-08-07] MEDS ORDERED: Magnesium 2 GM/50 ML(in water) 2 GM in Premix Bag 1 BAG IVPB SCH (08:00)
[2022-08-07] MEDS ORDERED: Furosemide 40 MG/4 ML VIAL SLOW IVP SCH (08:30)
[2022-08-07] MEDS: Ascorbic Acid 500 mg Chewable Tablet PO SCH ×2 (10:02→21:32)
[2022-08-07] MEDS: Famotidine/PF 20 mg/2ml Vial SLOW IVP SCH ×2 (10:02→21:32)
[2022-08-07] MEDS: Vancomycin 1 GM in Premix Bag 1 BAG IVPB SCH (13:06)
[2022-08-07] MEDS: Micafungin 100 MG in Sodium Chloride 0.9% 100 ML IVPB SCH (13:07)
[2022-08-07] MEDS: SODIUM CHLORIDE IV SCH (13:08)
[2022-08-07] MEDS: POTASSIUM CHLORIDE IV SCH (13:08)
[2022-08-07] MEDS: SODIUM ACETATE IV SCH (13:08)
[2022-08-07] MEDS: [UNRECOGNIZED DRUG - OTHER] IV SCH (13:08)
[2022-08-07] MEDS ORDERED: SODIUM CHLORIDE IV SCH (14:00)
[2022-08-07] MEDS ORDERED: POTASSIUM CHLORIDE IV SCH (14:00)
[2022-08-07] MEDS ORDERED: [UNRECOGNIZED DRUG - OTHER] IV SCH (14:00)
[2022-08-07] MEDS ORDERED: SODIUM ACETATE IV SCH (14:00)
[2022-08-07] MEDS: FENTANYL 50 MCG/ML 1 ML VIAL SLOW IVP PRN (18:11)
[2022-08-07] MEDS: Melatonin 3 MG TAB PO SCH (21:32)
[2022-08-07] MEDS ORDERED: traZODone HCl 50 MG TAB PO SCH (23:59)
[2022-08-08] MEDS: Vancomycin 1 GM in Premix Bag 1 BAG IVPB SCH ×2 (00:07→12:44)
[2022-08-08] MEDS: FENTANYL 50 MCG/ML 1 ML VIAL SLOW IVP PRN ×2 (00:08→11:53)
[2022-08-08] MEDS: Latanoprost 0.005% Ophth Soln 2.5 ml Bottle EA EYE SCH ×2 (00:09→21:25)
[2022-08-08 05:01] LABS: #Eosinphils 0.1 thou/uL (0.0-0.7); #Monocytes 1.7 thou/uL (0.11-0.59); #Neutrophils 12.4 thou/uL (1.40-6.50); %Basophils 0.2 % (0.0-1.0); %Lymphocytes 6.7 % (21.0-51.0); %Neutrophils 81.2 % (42.0-75.0); Hemoglobin 7.2 g/dL (12.0-16.0); Mean Corpuscular HGB CONC 32.7 g/dL (32.0-36.0); Mean Corpuscular Hemoglobin 30.3 pg (27.0-31.0); Mean Corpuscular Volume 92.6 fl (78.0-98.0); Mean Platelet Volume 8.4 fL (7.4-10.4); Platelet Count 343 10x3/uL (130-400); Red Blood Cell (RBC) Count 2.39 mill/uL (4.20-5.40); White Blood Cell (WBC) Count 15.3 10x3/uL (4.8-10.8)
[2022-08-08 05:26] LABS: Anion Gap 9 mmol/L (10-20); BUN (Urea Nitrogen) 21 mg/dL (9.8-20.1); Calc. Creatinine Clearance 92 mL/min (70-130); Calcium 8.1 mg/dL (7.8-10.44); Carbon Dioxide 31 mmol/L (23-31); Chloride 99 mmol/L (98-107); Estimated GFR 95; Glucose 117 mg/dL (83-110); Potassium 3.6 mmol/L (3.5-5.1); Sodium 135 mmol/L (136-145)
[2022-08-08] MEDS: Meropenem 1 GM in Sodium Chloride 0.9% 100 ML IVPB SCH ×3 (05:57→21:23)
[2022-08-08] MEDS ORDERED: Magnesium 2 GM/50 ML(in water) 2 GM in Premix Bag 1 BAG IVPB SCH (06:45)
[2022-08-08] MEDS: Levothyroxine 100 MCG SDV IVP SCH (07:13)
[2022-08-08] MEDS: Zinc Sulfate 220 MG CAP PO SCH (09:17)
[2022-08-08] MEDS: Famotidine/PF 20 mg/2ml Vial SLOW IVP SCH ×2 (09:17→21:24)
[2022-08-08] MEDS: Ascorbic Acid 500 mg Chewable Tablet PO SCH ×2 (09:17→21:24)
[2022-08-08] MEDS: Micafungin 100 MG in Sodium Chloride 0.9% 100 ML IVPB SCH (12:42)
[2022-08-08] MEDS: [UNRECOGNIZED DRUG - OTHER] IV SCH (13:53)
[2022-08-08] MEDS: POTASSIUM CHLORIDE IV SCH (13:53)
[2022-08-08] MEDS: SODIUM CHLORIDE IV SCH (13:53)
[2022-08-08] MEDS: SODIUM ACETATE IV SCH (13:53)
[2022-08-08] MEDS ORDERED: POTASSIUM CHLORIDE IV SCH (14:00)
[2022-08-08] MEDS ORDERED: SODIUM ACETATE IV SCH (14:00)
[2022-08-08] MEDS ORDERED: SODIUM CHLORIDE IV SCH (14:00)
[2022-08-08] MEDS ORDERED: [UNRECOGNIZED DRUG - OTHER] IV SCH (14:00)
[2022-08-08] MEDS: Melatonin 3 MG TAB PO SCH (21:25)
[2022-08-08 22:57] LABS: Vancomycin, Trough 13.2 ug/mL
[2022-08-09 04:32] LABS: #Eosinphils 0.2 thou/uL (0.0-0.7); #Lymphocytes 1.2 thou/uL (1.20-3.40); #Monocytes 1.7 thou/uL (0.11-0.59); #Neutrophils 9.4 thou/uL (1.40-6.50); %Basophils 0.1 % (0.0-1.0); %Eosinophils 1.8 % (0.0-10.0); %Lymphocytes 9.6 % (21.0-51.0); %Monocytes 13.2 % (0.0-10.0); %Neutrophils 75.4 % (42.0-75.0); Hemoglobin 7.5 g/dL (12.0-16.0); Mean Corpuscular HGB CONC 33.5 g/dL (32.0-36.0); Mean Corpuscular Hemoglobin 31.1 pg (27.0-31.0); Mean Platelet Volume 7.8 fL (7.4-10.4); Platelet Count 437 10x3/uL (130-400); Red Blood Cell (RBC) Count 2.42 mill/uL (4.20-5.40); White Blood Cell (WBC) Count 12.5 10x3/uL (4.8-10.8)
[2022-08-09] MEDS: Meropenem 1 GM in Sodium Chloride 0.9% 100 ML IVPB SCH ×3 (04:58→20:02)
[2022-08-09 04:59] LABS: Anion Gap 9 mmol/L (10-20); BUN (Urea Nitrogen) 20 mg/dL (9.8-20.1); Calc. Creatinine Clearance 85 mL/min (70-130); Carbon Dioxide 29 mmol/L (23-31); Chloride 101 mmol/L (98-107); Estimated GFR 96; Glucose 105 mg/dL (83-110); Potassium 3.9 mmol/L (3.5-5.1); Sodium 135 mmol/L (136-145)
[2022-08-09] MEDS: Levothyroxine 100 MCG SDV IVP SCH (05:00)
[2022-08-09] MEDS: Famotidine/PF 20 mg/2ml Vial SLOW IVP SCH ×2 (10:08→20:01)
[2022-08-09] MEDS: Zinc Sulfate 220 MG CAP PO SCH (10:09)
[2022-08-09] MEDS: Ascorbic Acid 500 mg Chewable Tablet PO SCH ×2 (10:09→20:01)
[2022-08-09] MEDS: Micafungin 100 MG in Sodium Chloride 0.9% 100 ML IVPB SCH (13:00)
[2022-08-09] MEDS: [UNRECOGNIZED DRUG - OTHER] IV SCH (14:37)
[2022-08-09] MEDS: SODIUM ACETATE IV SCH (14:37)
[2022-08-09] MEDS: SODIUM CHLORIDE IV SCH (14:37)
[2022-08-09] MEDS: POTASSIUM CHLORIDE IV SCH (14:37)
[2022-08-09] MEDS: Melatonin 3 MG TAB PO SCH (20:01)
[2022-08-09] MEDS: Latanoprost 0.005% Ophth Soln 2.5 ml Bottle EA EYE SCH (20:01)
[2022-08-10 05:01] LABS: #Basophils 0.1 thou/uL (0.0-0.2); #Eosinphils 0.2 thou/uL (0.0-0.7); #Lymphocytes 1.2 thou/uL (1.20-3.40); #Monocytes 1.6 thou/uL (0.11-0.59); #Neutrophils 8.9 thou/uL (1.40-6.50); %Basophils 0.5 % (0.0-1.0); %Eosinophils 1.7 % (0.0-10.0); %Lymphocytes 9.7 % (21.0-51.0); %Monocytes 13.6 % (0.0-10.0); %Neutrophils 74.4 % (42.0-75.0); Hemoglobin 7.7 g/dL (12.0-16.0); Mean Corpuscular Hemoglobin 30.5 pg (27.0-31.0); Mean Corpuscular Volume 92.5 fl (78.0-98.0); Mean Platelet Volume 8.1 fL (7.4-10.4); Platelet Count 474 10x3/uL (130-400); RBC Distribution Width 14.2 % (11.5-14.5); Red Blood Cell (RBC) Count 2.52 mill/uL (4.20-5.40); White Blood Cell (WBC) Count 11.9 10x3/uL (4.8-10.8)
[2022-08-10 05:16] LABS: Anion Gap 11 mmol/L (10-20); BUN (Urea Nitrogen) 19 mg/dL (9.8-20.1); Calc. Creatinine Clearance 77 mL/min (70-130); Calcium 8.1 mg/dL (7.8-10.44); Carbon Dioxide 29 mmol/L (23-31); Chloride 100 mmol/L (98-107); Estimated GFR 93; Glucose 110 mg/dL (83-110); Potassium 3.9 mmol/L (3.5-5.1); Sodium 136 mmol/L (136-145)
[2022-08-10] MEDS: Levothyroxine 100 MCG SDV IVP SCH (05:42)
[2022-08-10] MEDS: Meropenem 1 GM in Sodium Chloride 0.9% 100 ML IVPB SCH (05:42)
[2022-08-10] MEDS: Zinc Sulfate 220 MG CAP PO SCH (09:09)
[2022-08-10] MEDS: Famotidine/PF 20 mg/2ml Vial SLOW IVP SCH ×2 (09:09→20:32)
[2022-08-10] MEDS: Ascorbic Acid 500 mg Chewable Tablet PO SCH ×2 (09:09→20:32)
[2022-08-10] MEDS: POTASSIUM CHLORIDE IV SCH (14:35)
[2022-08-10] MEDS: SODIUM ACETATE IV SCH (14:35)
[2022-08-10] MEDS: [UNRECOGNIZED DRUG - OTHER] IV SCH (14:35)
[2022-08-10] MEDS: SODIUM CHLORIDE IV SCH (14:35)
[2022-08-10] MEDS: Melatonin 3 MG TAB PO SCH (20:32)
[2022-08-10] MEDS: Latanoprost 0.005% Ophth Soln 2.5 ml Bottle EA EYE SCH (20:33)
[2022-08-11 04:30] LABS: Anion Gap 10 mmol/L (10-20); BUN (Urea Nitrogen) 19 mg/dL (9.8-20.1); Calc. Creatinine Clearance 77 mL/min (70-130); Calcium 8.1 mg/dL (7.8-10.44); Carbon Dioxide 28 mmol/L (23-31); Chloride 99 mmol/L (98-107); Estimated GFR 93; Glucose 93 mg/dL (83-110); Sodium 133 mmol/L (136-145)
[2022-08-11] MEDS: Levothyroxine 100 MCG SDV IVP SCH (05:25)
[2022-08-11 06:59] LABS: #Eosinphils 0.2 thou/uL (0.0-0.7); #Lymphocytes 1.3 thou/uL (1.20-3.40); #Monocytes 1.7 thou/uL (0.11-0.59); #Neutrophils 10.1 thou/uL (1.40-6.50); %Basophils 0.1 % (0.0-1.0); %Eosinophils 1.6 % (0.0-10.0); %Lymphocytes 9.8 % (21.0-51.0); %Monocytes 12.8 % (0.0-10.0); %Neutrophils 75.7 % (42.0-75.0); Hemoglobin 8.1 g/dL (12.0-16.0); Mean Corpuscular HGB CONC 32.5 g/dL (32.0-36.0); Mean Corpuscular Hemoglobin 29.6 pg (27.0-31.0); Mean Corpuscular Volume 91.2 fl (78.0-98.0); Mean Platelet Volume 7.6 fL (7.4-10.4); Platelet Count 522 10x3/uL (130-400); RBC Distribution Width 14.6 % (11.5-14.5); Red Blood Cell (RBC) Count 2.74 mill/uL (4.20-5.40); White Blood Cell (WBC) Count 13.3 10x3/uL (4.8-10.8)
[2022-08-11] MEDS: Ascorbic Acid 500 mg Chewable Tablet PO SCH ×2 (08:46→21:45)
[2022-08-11] MEDS: Zinc Sulfate 220 MG CAP PO SCH (08:46)
[2022-08-11] MEDS: Famotidine/PF 20 mg/2ml Vial SLOW IVP SCH ×2 (08:47→21:45)
[2022-08-11] MEDS: FENTANYL 50 MCG/ML 1 ML VIAL SLOW IVP PRN (13:16)
[2022-08-11] MEDS: SODIUM ACETATE IV SCH (15:25)
[2022-08-11] MEDS: POTASSIUM CHLORIDE IV SCH (15:25)
[2022-08-11] MEDS: [UNRECOGNIZED DRUG - OTHER] IV SCH (15:25)
[2022-08-11] MEDS: SODIUM CHLORIDE IV SCH (15:25)
[2022-08-11] MEDS: Melatonin 3 MG TAB PO SCH (21:45)
[2022-08-11] MEDS: Latanoprost 0.005% Ophth Soln 2.5 ml Bottle EA EYE SCH (21:46)
[2022-08-12] MEDS: Levothyroxine 100 MCG SDV IVP SCH (05:08)
[2022-08-12 06:57] LABS: Anion Gap 9 mmol/L (10-20); BUN (Urea Nitrogen) 16 mg/dL (9.8-20.1); Calc. Creatinine Clearance 77 mL/min (70-130); Calcium 7.5 mg/dL (7.8-10.44); Carbon Dioxide 26 mmol/L (23-31); Chloride 105 mmol/L (98-107); Estimated GFR 95; Glucose 121 mg/dL (83-110); Potassium 3.7 mmol/L (3.5-5.1); Sodium 136 mmol/L (136-145)
[2022-08-12 07:07] LABS: #Eosinphils 0.3 thou/uL (0.0-0.7); #Lymphocytes 1.8 thou/uL (1.20-3.40); #Monocytes 1.8 thou/uL (0.11-0.59); #Neutrophils 10.4 thou/uL (1.40-6.50); %Basophils 0.3 % (0.0-1.0); %Eosinophils 2.4 % (0.0-10.0); %Lymphocytes 12.7 % (21.0-51.0); %Monocytes 12.5 % (0.0-10.0); %Neutrophils 72.1 % (42.0-75.0); Hemoglobin 7.8 g/dL (12.0-16.0); Mean Corpuscular HGB CONC 32.3 g/dL (32.0-36.0); Mean Corpuscular Hemoglobin 29.9 pg (27.0-31.0); Mean Corpuscular Volume 92.6 fl (78.0-98.0); Mean Platelet Volume 7.4 fL (7.4-10.4); Platelet Count 578 10x3/uL (130-400); RBC Distribution Width 14.8 % (11.5-14.5); Red Blood Cell (RBC) Count 2.62 mill/uL (4.20-5.40); White Blood Cell (WBC) Count 14.4 10x3/uL (4.8-10.8)
[2022-08-12] MEDS: Zinc Sulfate 220 MG CAP PO SCH (09:02)
[2022-08-12] MEDS: Ascorbic Acid 500 mg Chewable Tablet PO SCH ×2 (09:02→22:38)
[2022-08-12] MEDS: Famotidine/PF 20 mg/2ml Vial SLOW IVP SCH ×2 (09:02→22:40)
[2022-08-12] MEDS: FENTANYL 50 MCG/ML 1 ML VIAL SLOW IVP PRN (10:58)
[2022-08-12] MEDS: Ondansetron PF 4 MG/2 ML Vial IVP PRN (11:02)
[2022-08-12] MEDS: Melatonin 3 MG TAB PO SCH (22:39)
[2022-08-12] MEDS: Latanoprost 0.005% Ophth Soln 2.5 ml Bottle EA EYE SCH (22:40)
[2022-08-13] MEDS: Levothyroxine 100 MCG SDV IVP SCH (05:55)
[2022-08-13 06:25] LABS: #Basophils 0.1 thou/uL (0.0-0.2); #Eosinphils 0.3 thou/uL (0.0-0.7); #Monocytes 1.5 thou/uL (0.11-0.59); #Neutrophils 10.6 thou/uL (1.40-6.50); %Basophils 0.4 % (0.0-1.0); %Eosinophils 2.3 % (0.0-10.0); %Monocytes 10.6 % (0.0-10.0); %Neutrophils 72.7 % (42.0-75.0); Hemoglobin 8.1 g/dL (12.0-16.0); Mean Corpuscular HGB CONC 31.8 g/dL (32.0-36.0); Mean Corpuscular Hemoglobin 29.9 pg (27.0-31.0); Mean Corpuscular Volume 93.8 fl (78.0-98.0); Mean Platelet Volume 7.3 fL (7.4-10.4); Platelet Count 647 10x3/uL (130-400); RBC Distribution Width 14.9 % (11.5-14.5); Red Blood Cell (RBC) Count 2.71 mill/uL (4.20-5.40); White Blood Cell (WBC) Count 14.5 10x3/uL (4.8-10.8)
[2022-08-13 06:32] LABS: Anion Gap 11 mmol/L (10-20); BUN (Urea Nitrogen) 17 mg/dL (9.8-20.1); Calc. Creatinine Clearance 76 mL/min (70-130); Calcium 8.3 mg/dL (7.8-10.44); Carbon Dioxide 28 mmol/L (23-31); Chloride 100 mmol/L (98-107); Estimated GFR 94; Glucose 87 mg/dL (83-110); Potassium 3.9 mmol/L (3.5-5.1); Sodium 135 mmol/L (136-145)
[2022-08-13] MEDS: Famotidine/PF 20 mg/2ml Vial SLOW IVP SCH ×2 (08:50→20:22)
[2022-08-13] MEDS: Zinc Sulfate 220 MG CAP PO SCH (08:50)
[2022-08-13] MEDS: Ascorbic Acid 500 mg Chewable Tablet PO SCH ×2 (08:50→20:22)
[2022-08-13] MEDS: FENTANYL 50 MCG/ML 1 ML VIAL SLOW IVP PRN (10:39)
[2022-08-13] MEDS: Melatonin 3 MG TAB PO SCH (20:22)
[2022-08-13] MEDS: Latanoprost 0.005% Ophth Soln 2.5 ml Bottle EA EYE SCH (20:23)
[2022-08-14] MEDS: FENTANYL 50 MCG/ML 1 ML VIAL SLOW IVP PRN ×2 (01:38→14:29)
[2022-08-14] MEDS: Levothyroxine 100 MCG SDV IVP SCH (05:30)
[2022-08-14 05:41] LABS: #Basophils 0.1 thou/uL (0.0-0.2); #Eosinphils 0.4 thou/uL (0.0-0.7); #Lymphocytes 1.7 thou/uL (1.20-3.40); #Monocytes 1.5 thou/uL (0.11-0.59); #Neutrophils 9.9 thou/uL (1.40-6.50); %Basophils 0.4 % (0.0-1.0); %Eosinophils 3.1 % (0.0-10.0); %Lymphocytes 12.8 % (21.0-51.0); %Monocytes 10.9 % (0.0-10.0); %Neutrophils 72.9 % (42.0-75.0); Hemoglobin 7.6 g/dL (12.0-16.0); Mean Corpuscular HGB CONC 32.5 g/dL (32.0-36.0); Mean Corpuscular Hemoglobin 30.2 pg (27.0-31.0); Mean Corpuscular Volume 92.8 fl (78.0-98.0); Mean Platelet Volume 7.2 fL (7.4-10.4); Platelet Count 619 10x3/uL (130-400); RBC Distribution Width 14.7 % (11.5-14.5); Red Blood Cell (RBC) Count 2.51 mill/uL (4.20-5.40); White Blood Cell (WBC) Count 13.5 10x3/uL (4.8-10.8)
[2022-08-14 06:06] LABS: Anion Gap 10 mmol/L (10-20); BUN (Urea Nitrogen) 15 mg/dL (9.8-20.1); Calc. Creatinine Clearance 68 mL/min (70-130); Calcium 8.4 mg/dL (7.8-10.44); Carbon Dioxide 29 mmol/L (23-31); Chloride 99 mmol/L (98-107); Estimated GFR 92; Glucose 79 mg/dL (83-110); Potassium 3.9 mmol/L (3.5-5.1); Sodium 134 mmol/L (136-145)
[2022-08-14] MEDS: Famotidine/PF 20 mg/2ml Vial SLOW IVP SCH (09:25)
[2022-08-14] MEDS: Zinc Sulfate 220 MG CAP PO SCH (09:25)
[2022-08-14] MEDS: Ascorbic Acid 500 mg Chewable Tablet PO SCH ×2 (09:25→20:01)
[2022-08-14] MEDS: Simethicone Chewable 80 MG TAB PO PRN ×2 (11:46→20:33)
[2022-08-14] MEDS: Latanoprost 0.005% Ophth Soln 2.5 ml Bottle EA EYE SCH (20:02)
[2022-08-14] MEDS: Melatonin 3 MG TAB PO SCH (20:02)
[2022-08-15] MEDS ORDERED: Acetaminophen 325 MG TAB PO SCH (03:45)
[2022-08-15] MEDS: Levothyroxine 100 MCG SDV IVP SCH (06:36)
[2022-08-15] MEDS: Ascorbic Acid 500 mg Chewable Tablet PO SCH (09:55)
[2022-08-15] MEDS: Zinc Sulfate 220 MG CAP PO SCH (09:55)
[2022-08-15 13:45] VITALS: BMI 20.7
[2022-08-15 15:25] VITALS: BP 132/62; TEMP 97.6
[2022-08-15] MEDS ORDERED: Diphenoxylate HCl/Atropine Tablet PO SCH (21:00)
== END 2022-08-15 15:48 | DRG 329 ==
LOC: ERS 17:33 → SURG B 20:29 → CCU 07-28 20:20 → SJJU 08-10 12:56
PROVIDERS: ADMIT Student in an Organized Health Care Education/Training Program; ATTEND Family Medicine
PROC: 0D9770Z Drainage of Stomach, Pylorus with Drainage Device, Via Natural or Artificial Opening (ICD-10-PCS; 2022-07-27)
PROC: 3E03329 Introduction of Other Anti-infective into Peripheral Vein, Percutaneous Approach (ICD-10-PCS; 2022-07-27)
PROC: 0DBF0ZZ Excision of Right Large Intestine, Open Approach (ICD-10-PCS; principal; 2022-07-28)
PROC: 0DBB0ZZ Excision of Ileum, Open Approach (ICD-10-PCS; 2022-07-28)
PROC: 5A1955Z Respiratory Ventilation, Greater than 96 Consecutive Hours (ICD-10-PCS; 2022-07-28)
PROC: 4A133R1 Monitoring of Arterial Saturation, Peripheral, Percutaneous Approach (ICD-10-PCS; 2022-07-28)
PROC: 3E033XZ Introduction of Vasopressor into Peripheral Vein, Percutaneous Approach (ICD-10-PCS; 2022-07-28)
PROC: 0D1B0Z4 Bypass Ileum to Cutaneous, Open Approach (ICD-10-PCS; 2022-08-02)
PROC: 02HV33Z Insertion of Infusion Device into Superior Vena Cava, Percutaneous Approach (ICD-10-PCS; 2022-08-02)
PROC: 3E0436Z Introduction of Nutritional Substance into Central Vein, Percutaneous Approach (ICD-10-PCS; 2022-08-02)
DX: C17.2 Malignant neoplasm of ileum (principal); A41.9 Sepsis, unspecified organism; K63.1 Perforation of intestine (nontraumatic); J95.821 Acute postprocedural respiratory failure; R57.8 Other shock; K65.8 Other peritonitis; C19 Malignant neoplasm of rectosigmoid junction; E87.1 Hypo-osmolality and hyponatremia; E87.20 Acidosis, unspecified; E44.0 Moderate protein-calorie malnutrition; K56.699 Other intestinal obstruction unspecified as to partial versus complete obstruction; K56.7 Ileus, unspecified; J90 Pleural effusion, not elsewhere classified; D62 Acute posthemorrhagic anemia; Z88.5 Allergy status to narcotic agent; E03.9 Hypothyroidism, unspecified; E87.6 Hypokalemia; M81.0 Age-related osteoporosis without current pathological fracture; E88.09 Other disorders of plasma-protein metabolism, not elsewhere classified; Z87.891 Personal history of nicotine dependence; Z90.49 Acquired absence of other specified parts of digestive tract; Z88.0 Allergy status to penicillin; Z91.048 Other nonmedicinal substance allergy status; Z79.890 Hormone replacement therapy; Z79.899 Other long term (current) drug therapy; Z68.21 Body mass index [BMI] 21.0-21.9, adult; Z92.21 Personal history of antineoplastic chemotherapy
CPT/HCPCS: 36415; 36416; 36600; 71045; 74018; 74174; 74250; 80048; 80053; 80061; 80076; 80202; 81003; 81015; 82306; 82533; 82805; 83605; 83690; 83735; 84100; 84134; 84439; 84443; 85025; 85027; 85610; 85730; 86850; 86900; 86901; 87040; 87086; 87811; 88309; 88342; 93005; 93010; 94002; 94003; 96374; 96375; 97139; C1751; J0610; J0780; J1200; J1650; J1885; J1940; J1956; J2060; J2185; J2248; J2250; J2270; J2405; J2930; J3010; J3370; J3370-JW; J3411; J3475; J3480; J3490; J7042; J7050; J7120; P9045; P9047; Q0162; Q9963; Q9967; S0028; U0002

== ENCOUNTER 2022-09-14 14:05 | Outpatient (CLI) | payer MEDICARE ==
[~2022-09-14 14:05] MED LIST changes: +Iopamidol 370 76% 100 ML VIAL ONE; -Iopamidol-370 76% 500 ML MDV (1 ML CHARGE) ONE
== END 2022-09-14 14:06 | disposition home or self-care (01) ==
LOC: CT 14:05
PROVIDERS: ATTEND Internal Medicine Hematology & Oncology
DX: I26.99 Other pulmonary embolism without acute cor pulmonale (principal); C21.1 Malignant neoplasm of anal canal; M81.0 Age-related osteoporosis without current pathological fracture; J47.9 Bronchiectasis, uncomplicated; R91.8 Other nonspecific abnormal finding of lung field
CPT/HCPCS: 71275

== ENCOUNTER 2022-11-25 11:25 | Outpatient (CLI) | payer MEDICARE | END 2022-11-25 11:26 | disposition home or self-care (01) | LOC: RAD 11:25 | PROVIDERS: ATTEND Family Medicine | DX: R07.81 Pleurodynia (principal) | CPT/HCPCS: 71046 ==

== ENCOUNTER 2023-03-01 14:12 | Outpatient (CLI) | payer MEDICARE | END 2023-03-01 14:13 | disposition home or self-care (01) | LOC: BICRAD 14:12 | PROVIDERS: ATTEND Family Medicine | DX: G89.29 Other chronic pain (principal); M47.816 Spondylosis without myelopathy or radiculopathy, lumbar region; S32.039A Unspecified fracture of third lumbar vertebra, initial encounter for closed fracture | CPT/HCPCS: 72100 ==

== ENCOUNTER 2023-03-16 13:54 | Outpatient (CLI) | payer MEDICARE | END 2023-03-16 13:55 | disposition home or self-care (01) | LOC: MRI 13:54 | PROVIDERS: ATTEND Nurse Practitioner Family | DX: M51.17 Intervertebral disc disorders with radiculopathy, lumbosacral region (principal); M80.08XA Age-related osteoporosis with current pathological fracture, vertebra(e), initial encounter for fracture; G95.19 Other vascular myelopathies; S32.039A Unspecified fracture of third lumbar vertebra, initial encounter for closed fracture; M47.816 Spondylosis without myelopathy or radiculopathy, lumbar region | CPT/HCPCS: 72148 ==